=== PATIENT | male | born 1955 | race Caucasian/White ===

== ENCOUNTER 2017-11-22 15:55 | Emergency (ER) | payer MEDICAID, SELFPAY ==
[2017-11-22 15:56] VITALS: BP 122/76; PULSE 71; RESP 16; TEMP 37.4; O2SAT 95; BMI 27.4
--- NOTE | 2017-11-22 16:47 | ED.VISSUMM ---
- ER Visit Summary Date of Service: 11/22/17 Chief Complaint: Hand laceration History of Present Illness: The patient is a 62 M suffered a laceration to the proximal right thumb from a spice grinder. He also has multiple abrasions to the dorsal left hand. He is unsure of his last tetanus update. He is right-hand dominant. He denies any weakness or paresthesias. Physical Examination: Vital signs are unremarkable. Patient's in no acute distress. Right upper extremity examination was a 3 cm laceration to the extensor surface of the right thumb over the metacarpal bone. He has full range of motion without bony tenderness. He has normal strength and sensation and good cap refill. Abrasions are noted to the dorsal left hand. There is no full-thickness laceration. He has full range of motion on the left hand. Test Results: [] Emergency Department Course and Treatment: Tetanus update will be provided. A 3 cm laceration on the right hand was anesthetized with 3 cc 1% lidocaine. Wound was cleansed and irrigated. Skin was closed with 5 simple interrupted sutures of 4-0 nylon. Dressing is applied. Left hand abrasions were cleansed and dressed. Patient will follow up in 1 week for suture removal. Treatment Plan: [] Disposition: Discharge Impression: 1. Right thumb laceration status post suture 2. Left hand abrasions This note was generated with [employer] dictation software. It may contain incorrect words, spelling, and punctuation that were not noted in review of the chart prior to signing ED Disposition - Plan for ED Patient: Chief Complaint: Laceration Referrals: Care Physician,No Primary [Primary Care Provider] -
--- NOTE | 2017-11-22 16:49 | ED.DEP ---
ED Disposition - Plan for ED Patient: Disposition: Home or Assisted Living Chief Complaint: Laceration Instructions: ED Laceration Hand Referrals: Geovany Ahn MD [NON-STAFF] - 7 Days for suture removal
[2017-11-22] MEDS: Diphth,Pertuss(Acell),Tet Vac 0.5 ML Vial IM (16:51)
[2017-11-22 17:22] VITALS: RESP 18
== END 2017-11-22 17:23 | disposition home or self-care (01) ==
PROVIDERS: Emergency Provider Emergency Medicine
DX: S61.011A Laceration without foreign body of right thumb without damage to nail, initial encounter (principal); S60.512A Abrasion of left hand, initial encounter; W31.89XA Contact with other specified machinery, initial encounter; Y93.9 Activity, unspecified; Y92.9 Unspecified place or not applicable; Y99.9 Unspecified external cause status; Z23 Encounter for immunization; I10 Essential (primary) hypertension; Z79.899 Other long term (current) drug therapy
CPT/HCPCS: 12002; 90471; 90715; 99283

== ENCOUNTER 2017-12-05 10:56 | Emergency (ER) | payer MEDICAID, SELFPAY ==
[2017-12-05 10:57] VITALS: BP 145/94; PULSE 88; RESP 15; TEMP 36.5; O2SAT 98; BMI 28.0
--- NOTE | 2017-12-05 11:21 | EKG12_ITS ---
Test Reason : PALPS Blood Pressure : / mmHG Vent. Rate : 095 BPM Atrial Rate : 111 BPM P-R Int : 000 ms QRS Dur : 088 ms QT Int : 358 ms P-R-T Axes : 000 038 064 degrees QTc Int : 449 ms Atrial fibrillation Abnormal ECG Confirmed by EFRAIN JEFF MD ([id number]), food expeditor TOMEKA HESS ([id number]) on 12/07/2017 1:54:47 PM Referred By: JONH/JUANITA Confirmed By:EFRAIN JEFF MD
[2017-12-05 11:43] LABS: Absolute Lymphocyte Count 1.25 X10^3/ul (0.83-4.51); Absolute Neutrophil Count 5.5 X10^3/uL (2.0-7.7); Basophil# 0.02 X10^3/uL; Basophil% 0.3 % (0-1); Eosinophil# 0.11 X10^3/uL; Eosinophils% 1.4 % (0-5); Hematocrit 45.5 % (40-54); Hemoglobin 16.2 g/dl (13.0-16.5); Lymphocyte # 1.25 X10^3/ul (4.0); Lymphocyte % 16.4 % (19-41); Mean Corp Hgb Conc 35.6 g/gl (32-36); Mean Corpuscular Volume 89.9 fL (80-94); Mean Platelet Vol. 8.6 fl (6.2-12.0); Monocyte# 0.67 X10^3/uL; Monocyte% 8.8 % (0-10); Neutrophil # 5.54 X10^3/uL (2.7-7.7); Neutrophil % 72.8 % (47-70); Platelet Count 346 K/mm3 (150-450); RBC Distribution Width CV 13.2 % (11.6-14.6); RBC Distribution Width SD 42.7 fl (35.1-43.9); Red Blood Count 5.06 M/mm3 (4.6-6.2); White Blood Count 7.6 K/mm3 (4.4-11.0)
[2017-12-05 11:46] LABS: POSITIVE COUNT NO; POSITIVE DIFFERENTIAL NO; POSITIVE MORPHOLOGY NO
[2017-12-05] MEDS: Metoprolol Tartrate 5 MG/5 ML Vial IV (11:47)
[2017-12-05 11:50] LABS: Partial Thromboplast Time 23.6 Seconds (24.1-36.2); Prothrombin Time (Protime)PT. 12.9 SECONDS (11.7-14.9)
--- NOTE | 2017-12-05 11:59 | RAD_ITS ---
STUDY: X-RAY CHEST REASON FOR EXAM: Male, 62 years old. Complications. Recent diagnosis of atrial fibrillation. TECHNIQUE: Frontal and lateral views of the chest. COMPARISON: None. FINDINGS: There is low volume inspiration with minimal bibasilar atelectasis. There is no demonstrated pleural abnormality. There is borderline cardiomegaly. Normal mediastinum and jono. Normal visualized pulmonary arteries. Normal visualized aortic arch and descending thoracic aorta. Normal visualized thoracic spine. Normal visualized ribs, clavicles, and shoulders. There is no demonstrated abnormality of the visualized soft tissue structures of the upper abdomen. RAD/Chest PA and Lateral IMPRESSION: No active or acute cardiopulmonary disease. Electronically Signed: Jose Mccabe MD at 12:42 EST , Service support ,
[2017-12-05 12:06] LABS: AST(SGOT) 14 U/L (15-37); Alanine Aminotransfer ALT/SGPT 25 U/L (16-61); Albumin, Serum 3.6 g/dL (3.2-5.0); Alkaline Phosphatase 56 U/L (45-117); Anion Gap 8 (5-15); BUN 15 mg/dL (7-18); BUN/Creat Ratio 16.6 RATIO (10-20); Calcium,Total 9.1 mg/dL (8.5-10.1); Chloride 103 mmol/L (98-107); EST Glomerular Filtration Rate 91 mL/min (>60); Est Glom Filt Rate - Afr Amer 110 mL/min (>60); Estimated Creatinine Clearance 97.41 ml/min; Globulin 3.5 g/dL (2.2-4.2); Glucose 113 mg/dL (74-106); Magnesium 2.5 mg/dL (1.6-2.6); Potassium 3.8 mmol/L (3.5-5.1); Protein, Total 7.1 g/dL (6.4-8.2); Sodium Level 136 mmol/L (136-145); Thyroid Stim Hormone (TSH) 1.52 uIU/mL (0.358-3.74)
[2017-12-05 12:18] VITALS: BP 115/83; PULSE 90; RESP 12; O2SAT 95
[2017-12-05 13:00] VITALS: BP 116/83; PULSE 80; RESP 16; O2SAT 95
--- NOTE | 2017-12-05 13:24 | ED.DCSUM_ITS ---
- ER Visit Summary Date of Service: 12/05/17 Chief Complaint: New onset atrial fibrillation History of Present Illness: The patient is a 62 M who went to get his stitches taken out today of his thumb. They state that they went to take his blood pressure and vital signs and found to be A. fib. Patient denies any chest pain or palpitations. Patient denies any change in exercise tolerance. No shortness of breath. He states that his laceration is healing up fine. A history of hypertension and takes lisinopril and hydrochlorothiazide. He also takes a baby aspirin a day. Patient is a former smoker and drinks 6 pack of beer daily. Physical Examination: Afebrile vital signs are stable heart rate 88 Gen: Well-nourished well-developed Head: Normocephalic atraumatic Eyes: Perrl EOMI ENT: TMs clear no rhinorrhea moist mucous membranes Neck: Supple no lymphadenopathy no JVD nontender CVS: Usually irregular rate rhythm no murmurs normal S1-S2 Respiratory: No distress clear to auscultation bilaterally chest nontender Abdomen: Soft nontender nondistended normal bowel sounds no masses Back: Nontender Extremity: Nontender no edema Skin: Normal color no rash Neuro: alert orientated ?3 CN II-XII intact normal strength sensation reflexes gait cerebellar Psych: Normal affect normal mood Test Results: EKG shows an atrial flutter-like pattern at a rate of 95. His prehospital EKG was reviewed and shows more of an atrial fibrillation pattern. Chest x-ray negative. CBC chemistries liver coags troponin and magnesium within the normal range. Emergency Department Course and Treatment: Received a small dose of IV metoprolol. He also received a dose of p.o. Xarelto and Toprol XL 50 mg. Patient's heart rates been more controlled. I spoke with Dr. Salomon the patient will be discharged home to follow-up in the office. We secured him appointment on December 28 at 1 PM. Patient is comfortable with her plan will return if worsening. Impression: 1. New onset atrial fibrillation This note was generated with [employer] dictation software. It may contain incorrect words, spelling, and punctuation that were not noted in review of the chart prior to signing ED Disposition - Plan for ED Patient: Disposition: Home or Assisted Living Chief Complaint: Palpitations Instructions: ED Afib Prescriptions: Metoprolol(XL)Succ [Toprol Xl (Beta Roberto)] 50 mg PO DAILY #30 tab Rivaroxaban [Xarelto] 20 mg PO DAILY #30 tab Referrals: Care Physician,No Primary [Primary Care Provider] - Additional Instructions: You have an appointment with cardiology (Dr. Salomon) on December 28 at 1 PM
[2017-12-05 13:27] VITALS: BP 109/90; PULSE 98; RESP 18; O2SAT 97
[2017-12-05] MEDS: Rivaroxaban 20 MG Tablet PO (13:54)
[2017-12-05] MEDS: Metoprolol(XL)Succ 50 MG Tablet PO (13:54)
== END 2017-12-05 13:55 | disposition home or self-care (01) ==
PROVIDERS: Emergency Provider Emergency Medicine
DX: I48.91 Unspecified atrial fibrillation (principal); I10 Essential (primary) hypertension; Z79.01 Long term (current) use of anticoagulants; Z79.82 Long term (current) use of aspirin; Z79.899 Other long term (current) drug therapy; Z87.891 Personal history of nicotine dependence
CPT/HCPCS: 71046; 80053; 83735; 84443; 84484; 85025; 85610; 85730; 93005; 96374; 99284; A4216

== ENCOUNTER → 2017-12-28 13:58 | Outpatient (CLI) | payer MEDICAID, SELFPAY ==
[2017-12-28 16:22] LABS: BUN 16 mg/dL (7-18); Creatinine, Serum 0.99 mg/dL (0.70-1.30); Glucose 91 mg/dL (74-106)
[2017-12-28 16:23] LABS: Anion Gap 8 (5-15); BUN/Creat Ratio 16.2 RATIO (10-20); Calcium,Total 9.1 mg/dL (8.5-10.1); Chloride 105 mmol/L (98-107); EST Glomerular Filtration Rate 82 mL/min (>60); Est Glom Filt Rate - Afr Amer 99 mL/min (>60); Potassium 3.9 mmol/L (3.5-5.1); Sodium Level 138 mmol/L (136-145)
== END ==
PROVIDERS: Visit Provider Internal Medicine Cardiovascular Disease
DX: I48.91 Unspecified atrial fibrillation (principal)
CPT/HCPCS: 36415; 80048

== ENCOUNTER → 2018-01-09 10:03 | Outpatient (CLI) | payer MEDICAID, SELFPAY ==
--- NOTE | 2018-01-09 13:06 | PCM.OP.BLANK ---
Operative Report Date of Procedure: 01/09/18 DC cardioversion. 63-year-old man with a history of chronic persistent atrial fibrillation has been on anticoagulation. Patient has preserved left ventricular systolic function by echocardiogram. The patient was brought into the noninvasive lab in the postabsorptive nonsedated state. Patient was seen by Dr. David of the critical care division. Informed consent was obtained. AP pads were applied. The patient was administered a total of 190 mg of intravenous propofol. DC cardioversion was applied with 200 J initially followed by 200 J, 300 J, and 360 J of biphasic energy. There was only transient resumption of sinus rhythm noted. After 4 attempts it was decided to abort the procedure. Patient tolerated the procedure well. Unsuccessful DC cardioversion from atrial fibrillation. Patient will be treated with oral amiodarone 200 mg a day for 2 weeks and brought back for an attempt at repeat cardioversion. The above has been discussed with the patient and his family. Alcohol cessation have also been emphasized.
--- NOTE | 2018-01-09 14:48 | PCM.OP.BLANK ---
Problem List (1) New onset atrial fibrillation Status: Acute (2) Alcohol abuse Status: Chronic (3) Hypertension Status: Chronic Qualifiers: Hypertension type: essential hypertension Qualified Code(s): I10 - Essential (primary) hypertension Operative Report Date of Procedure: 01/09/18 - Conscious sedation CONSCIOUS SEDATION REPORT BRIEF HISTORY OF PRESENT ILLNESS: The patient is a 63-year-old male with a history of paroxysmal atrial fibrillation that presented to [facility] on 01/09/2018 secondary to an elective cardioversion. The patient reports he has had an appendectomy and colonoscopy in the past without complication. Patient reports his last p.o. intake was last evening. Patient does admit to a brief smoking history in the past. Patient does also report drinking 3-6 beers per day. Patient states he does snore, but is never been diagnosed with MAXX. Patient is active on a daily basis and enjoys chopping wood and working around the home. Patient is anticoagulated with Xarelto therapy. Last known ejection fraction was 60%. PHYSICAL EXAMINATION: VITAL SIGNS: Reviewed and were acceptable. GENERAL: The patient is a morbidly obese male, in no apparent distress, speaking in full sentences. Edentulous HEENT: Normocephalic, atraumatic. Mucous membranes are moist and pink. Good mouth opening noted. Trachea is midline. Good neck mobility. Mallampati 4 CHEST: S1, S2 irregularly irregular. No systolic murmur is present LUNGS: Clear to auscultation bilaterally without appreciable wheezes, rales or rhonchi. ABDOMEN: Soft, nontender, nondistended. Positive bowel sounds. EXTREMITIES: There is no clubbing, cyanosis or edema. ASA Class: II DESCRIPTION OF PROCEDURE: After confirmation of informed consent, the patient's anesthesia plan was reviewed in detail. Propofol was chosen. Risks and benefits were reviewed and the patient agreed to proceed. At 11:50 AM the patient was given 40 mg of propofol. The patient required 120 mg of propofol to be sedated enough to receive the first cardioversion. In total, the patient received 200 mg of propofol to facilitate 4 separate synchronized cardioversions of 200, 200, 300 and 300 j respectively. None of these were successful in achieving prolonged sinus rhythm. The patient was monitored until 12:12 PM, at which time he was answering appropriately. No hypotension was noted and saturations were maintained with nasal cannula oxygen. COMPLICATIONS: None ESTIMATED BLOOD LOSS: None RECOMMENDATIONS: Okay to recover in usual fashion. Code Visit 9xxxx: Other Procedure See Report - 85266 -22 minutes of conscious sedation time
--- NOTE | 2018-01-09 15:07 | OP.PCM_ITS ---
Problem List (1) New onset atrial fibrillation Status: Acute (2) Alcohol abuse Status: Chronic (3) Hypertension Status: Chronic Qualifiers: Hypertension type: essential hypertension Qualified Code(s): I10 - Essential (primary) hypertension Operative Report Date of Procedure: 01/09/18 - Conscious sedation CONSCIOUS SEDATION REPORT BRIEF HISTORY OF PRESENT ILLNESS: The patient is a 63-year-old male with a history of paroxysmal atrial fibrillation that presented to [facility] on 01/09/2018 secondary to an elective cardioversion. The patient reports he has had an appendectomy and colonoscopy in the past without complication. Patient reports his last p.o. intake was last evening. Patient does admit to a brief smoking history in the past. Patient does also report drinking 3-6 beers per day. Patient states he does snore, but is never been diagnosed with MAXX. Patient is active on a daily basis and enjoys chopping wood and working around the home. Patient is anticoagulated with Xarelto therapy. Last known ejection fraction was 60%. PHYSICAL EXAMINATION: VITAL SIGNS: Reviewed and were acceptable. GENERAL: The patient is a morbidly obese male, in no apparent distress , speaking in full sentences. Edentulous HEENT: Normocephalic, atraumatic. Mucous membranes are moist and pink. Good mouth opening noted. Trachea is midline. Good neck mobility. Mallampati 4 CHEST: S1, S2 irregularly irregular. No systolic murmur is present LUNGS: Clear to auscultation bilaterally without appreciable wheezes, rales or rhonchi. ABDOMEN: Soft, nontender, nondistended. Positive bowel sounds. EXTREMITIES: There is no clubbing, cyanosis or edema. ASA Class: II DESCRIPTION OF PROCEDURE: After confirmation of informed consent, the patient's anesthesia plan was reviewed in detail. Propofol was chosen. Risks and benefits were reviewed and the patient agreed to proceed. At 11:50 AM the patient was given 40 mg of propofol. The patient required 120 mg of propofol to be sedated enough to receive the first cardioversion. In total, the patient received 200 mg of propofol to facilitate 4 separate synchronized cardioversions of 200, 200, 300 and 300 j respectively. None of these were successful in achieving prolonged sinus rhythm. The patient was monitored until 12:12 PM, at which time he was answering appropriately. No hypotension was noted and saturations were maintained with nasal cannula oxygen. COMPLICATIONS: None ESTIMATED BLOOD LOSS: None RECOMMENDATIONS: Okay to recover in usual fashion. Code Visit 9xxxx: Other Procedure See Report - [id number] -22 minutes of conscious sedation time
== END ==
PROVIDERS: Visit Provider Internal Medicine Cardiovascular Disease
DX: I48.1 Persistent atrial fibrillation (principal); I48.0 Paroxysmal atrial fibrillation; I10 Essential (primary) hypertension; E66.01 Morbid (severe) obesity due to excess calories; Z79.82 Long term (current) use of aspirin; Z79.01 Long term (current) use of anticoagulants; Z79.899 Other long term (current) drug therapy; Z87.891 Personal history of nicotine dependence
CPT/HCPCS: 92960; 93005; 93306; J7040

== ENCOUNTER 2018-01-30 10:53 | Day surgery (SDC) | payer MEDICAID, SELFPAY ==
[2018-01-27 11:48] VITALS: BMI 28.0
--- NOTE | 2018-01-30 12:37 | PCM.OP.BLANK ---
Operative Report Date of Procedure: 01/30/18 DC cardioversion. 63-year-old man with a history of atrial fibrillation chronic persistent on anticoagulation. The patient was seen by Dr. Cm of the critical care division and after informed consent was obtained the patient was brought to the non-invasive lab in the postabsorptive state. Anterior posterior pads were applied. The patient was then administered 90 mg of intravenous propofol. The patient underwent DC cardioversion with 200 J and subsequently 300 J of biphasic energy with reversal to sinus rhythm. Patient tolerated the procedure well. The plan will be for the patient to continue his current medical therapy and follow-up in my office as an outpatient. Conclusion: Successful DC cardioversion to sinus rhythm.
--- NOTE | 2018-01-30 12:41 | PCM.HP.CAR ---
History of Present Illness Date of Admission: 01/30/18 Chief Complaint: Preop evaluation for DC cardioversion The patient is a 63 year old M with a history of hypertension alcohol abuse who was evaluated in the office in December of this year and was noted to have atrial fibrillation which was asymptomatic and probably of recent onset. He had been evaluated with an echocardiogram which had demonstrated preserved ejection fraction and was placed on anticoagulation. He has been seen for evaluation and consideration of DC cardioversion. He denies any chest pain or shortness breath or paroxysmal nocturnal dyspnea pedal edema no neck arm or jaw discomfort suggest angina. [] Past Medical History Allergies/Adverse Reactions: Allergies No Known Allergies Allergy (Verified 11/22/17 15:59) Home Medications: Ambulatory Orders Medication Instructions Recorded Lisinopril/Hydrochlorothiazide 1 tab PO DAILY 11/22/17 [Zestoretic 10/.5 Tablet] Aspirin [Aspirin, Baby] 81 mg PO DAILY@0800 12/05/17 Multivitamins,Therapeutic 1 tab PO DAILY 12/05/17 [Multivitamin] metoprolol succinate ER 50 mg 50 mg PO DAILY #30 tab 12/28/17 tablet,extended release 24 hr rivaroxaban 20 mg tablet 20 mg PO DAILY #30 tab 12/28/17 Past Medical History (Chronic Problems): Chronic Problems (Last Reviewed 12/28/17 @ 13:37 by Celestino Salomon MD) Alcohol abuse (Chronic) Hypertension (Chronic) Surgical History: no surgical history - *Family History Maternal Family History: Family History (Last Reviewed 12/28/17 @ 13:37 by Celestino Salomon MD) Brother Cancer History Items: Hypertension Smoking Status: Former smoker Alcohol: Heavy Drugs: None Review of Systems - Review of Systems General: Denies: Fever, Night Sweats, Fatigue Cardiovascular: Denies: Chest Discomfort, Shortness of Breath, Orthopnea, PND, Peripheral Edema, Palpitations, Lightheadedness, Dizziness, Near Syncope, Syncope Respiratory: Denies: Cough, Sputum Production, Hemoptysis Gastrointestinal: Denies: Hematemesis, Hematochezia, Melena Genitourinary: Denies: Dysuria, Hematuria Skin: Denies: Rash Subjectve: Pleasant gentleman in no apparent distress Objective: Weight: 213 lb Body Mass Index (BMI) 28.0 General: Awake, Alert, Oriented x 3 HEENT: PERRL, EOMI, Sclera Non Icteric Neck: Supple, Good ROM, No Lymph Node Enlargement Lungs: Clear to auscultation Cardiovascular: Irregular Rhythm, Normal S1, Normal S2, No Murmurs, No Rubs, No Gallops VTE Information - Inpt Only VTE Present on Admission: No VTE Mechan Device Prophylaxis: None VTE Pharm Prophylaxis ordered?: No Reason prophylaxis not ordered:: Treatment Not Indicated Rhythm: EKG: Atrial fibrillation with a controlled ventricular response rate ECHO: Normal ejection fraction of 60% Assessment/Plan 1. Atrial fibrillation Patient appears to have chronic persistent atrial fibrillation. The recommendation at this time would be for him to undergo DC cardioversion. He has been on anticoagulation as well as rate limiting medications. The risk benefits and alternatives have been explained to him he understands and agrees to proceed. 2. Hypertension. Patient's blood pressure appears to be under good control at this time. Thank you for allowing me to participate in the care of your patient. Please don't hesitate to call if any issues arise
--- NOTE | 2018-01-30 13:08 | OP.PCM_ITS ---
Operative Report Date of Procedure: 01/30/18 CONSCIOUS SEDATION REPORT DATE OF SERVICE: January 30, 2018 BRIEF HISTORY OF PRESENT ILLNESS: The patient is a 63-year-old male who presented to [facility] for an elective outpatient cardioversion due to underlying atrial fibrillation. The patient is currently anticoagulated on Xarelto. His last surface echocardiogram revealed ejection fraction of approximately 60%. The patient did undergo a previous cardioversion on January 09, during which time, the patient required excessive amounts of propofol to achieve an appropriate level of sedation. The patient does have a tobacco and alcohol abuse history. He reports no prior anesthetic complications. PHYSICAL EXAMINATION: VITAL SIGNS: Reviewed and were acceptable. GENERAL: The patient is a male, in no apparent distress, speaking in full sentences. HEENT: Normocephalic, atraumatic. Mucous membranes are moist and pink. Good mouth opening noted. Trachea is midline. Good neck mobility. CHEST: S1, S2 irregularly irregular. No murmurs, rubs or gallops were noted. LUNGS: Clear to auscultation bilaterally without appreciable wheezes, rales or rhonchi. ABDOMEN: Soft, nontender, nondistended. Positive bowel sounds. EXTREMITIES: There is no clubbing, cyanosis or edema. ASA Class: II DESCRIPTION OF PROCEDURE: After confirmation of informed consent, the patient's anesthesia plan was reviewed in detail. Propofol was chosen. Risks and benefits were reviewed and the patient agreed to proceed. At 1221, the patient was given his first bolus of propofol. In total, the patient required 90 mg of propofol throughout the entire procedure to achieve an appropriate level of sedation in order to facilitate 2 separate cardioversion attempts, one at 200 J and one at 300 J. Following the second cardioversion attempt by Dr. Salomon, the patient was noted to be in normal sinus rhythm. The patient was monitored until 1229, at which time they reached their baseline mental status and function. The patient tolerated the procedure well. COMPLICATIONS: None ESTIMATED BLOOD LOSS: None RECOMMENDATIONS: Okay to recover in usual fashion. Code Visit 9xxxx: Other Procedure See Report
== END 2018-01-30 23:59 | disposition home or self-care (01) ==
LOC: CLSP 10:55
PROVIDERS: Visit Provider Internal Medicine Cardiovascular Disease
DX: I48.2 Chronic atrial fibrillation (principal); I48.1 Persistent atrial fibrillation; I10 Essential (primary) hypertension; F10.10 Alcohol abuse, uncomplicated; Y90.9 Presence of alcohol in blood, level not specified; Z87.891 Personal history of nicotine dependence; Z79.01 Long term (current) use of anticoagulants; Z79.899 Other long term (current) drug therapy
CPT/HCPCS: 92960; 93005; J7030

== ENCOUNTER → 2019-04-18 06:57 | Outpatient (CLI) | payer MEDICAID, SELFPAY ==
[2019-02-16 08:16] VITALS: BMI 29.0
--- NOTE | 2019-04-18 10:24 | NEURO ---
NCS and/or EMG Patient Report Ordering Doctor: Supa Colindres DATE OF SERVICE: 04/18/19 This is a bilateral upper extremity nerve conduction study and a left upper extremity EMG performed on this 64-year-old male with tingling numbness and pain which awakens him from sleep bilaterally worse on the left. He is right-handed. Symptoms have been present for 5 years. Bilateral upper extremity sensory and motor nerve conduction studies were performed demonstrate severe prolongation of the median motor and sensory distal latencies bilaterally more so on the left side which also demonstrates decreased amplitude. Both sides demonstrate decreased conduction velocity. The ulnar motor and sensory and radial sensory responses are normal. The median F waves bilaterally are severely prolonged. Left upper extremity needle electromyography was performed. Muscles evaluate included The first dorsal osseous, abductor pollicis brevis, brachioradialis, biceps, triceps and deltoid muscles. The abductor pollicis brevis muscle did demonstrate increased insertional activity with 1+ fibrillation potentials and mild increased motor unit amplitude and early recruitment pattern. All other muscles demonstrated normal insertional activity with absence of pathologic spontaneous activity. Normal motor unit recruitment pattern amplitude was noted otherwise. Impression: Abnormal electrophysiologic study of the bilateral upper extremities consistent with severe carpal tunnel syndrome bilaterally, electrically worse on the left side.
== END ==
PROVIDERS: Referring Provider Orthopaedic Surgery; Visit Provider Orthopaedic Surgery
DX: G56.03 Carpal tunnel syndrome, bilateral upper limbs (principal); G56.23 Lesion of ulnar nerve, bilateral upper limbs
CPT/HCPCS: 95886; 95911

== ENCOUNTER 2019-04-23 16:45 | Emergency (ER) | payer MEDICAID, SELFPAY ==
[2019-02-16 08:16] VITALS: BMI 29.0
[2019-04-23 16:46] VITALS: BP 109/80; PULSE 58; RESP 12; TEMP 36.2; O2SAT 96; BMI 28.4
--- NOTE | 2019-04-23 16:56 | CT_ITS ---
STUDY: CT ABDOMEN AND PELVIS WITH CONTRAST REASON FOR EXAM: Male, 64 years old. Diarrhea for 3 days. RADIATION DOSAGE (If Supplied By Facility): CTDIvol = ( 18.33 ) mGy, DLP = ( 1333.99 ) mGycm TECHNIQUE: Transaxial images were obtained from the dome of the diaphragm to the symphysis pubis with oral contrast. 100 IV/Oral Isovue 300 was administered. Sagittal and coronal images were reconstructed. Individualized dose optimization techniques were used for this CT. COMPARISON: None. FINDINGS: The visualized lung bases are unremarkable. The visualized portions of the heart are within normal limits. Normal liver. Normal gallbladder and extrahepatic biliary system. Normal spleen. Normal pancreas. Normal bilateral adrenal glands. Normal right kidney. Normal right ureter. There is an exophytic 3.6 cm cyst off the upper pole of an otherwise normal left kidney. Normal left ureter. Type I hiatal hernia. The stomach is otherwise unremarkable. The proximal small bowel appears grossly normal. There is mildly dilated small bowel loops in the left lower quadrant with associated wall thickening suggesting ileitis. This can be followed to the cecum. The colon contains fluid but is nondistended. There is mild descending and sigmoid diverticulosis without acute inflammatory change. The appendix is visualized and appears normal. Normal abdominal aorta. Normal inferior vena cava. Normal retroperitoneum. Normal urinary bladder. The prostate is enlarged with central calcifications. No pelvic lymphadenopathy. There is minimal free fluid in the posterior cul-de-sac. No free air is seen within the peritoneal cavity. Normal abdominal wall. There are diffuse degenerative changes of the visualized lumbar spine. There is mild anterolisthesis of L5 on S1 with pars defects. CT/Abdomen/Pelvis WITH Contrast IMPRESSION: 1. Findings suggestive of ileitis. 2. Left renal cyst. 3. Enlarged prostate. 4. Diverticulosis without acute inflammatory change. 5. Hiatal hernia. 6. Minimal free fluid in the posterior cul-de-sac thought to be secondary to inflammatory processes small bowel. 7. Degenerative changes of the lumbar spine. Electronically Signed: Lorenzo Urias DO at 19:10 EDT Tel [phone], Service support ,
--- NOTE | 2019-04-23 16:59 | ED.VIS.GEN ---
History of Present Illness Chief Complaint: Abd Pain Detail of Chief Complaint: Diarrhea and abdominal pain Informant: Patient Onset: - - 3 days Timing: Waxes and wanes Current Severity: Mild Maximum Severity: Moderate Narrative: Patient presents with a 3-day history of abdominal pain and diarrhea. He states he is having approximate 3 loose bowel movements a day. No blood associated. Is been having intermittent sharp pain around the umbilicus. He does report prior colonoscopy that was unremarkable. He denies history of IBS, Crohn's disease, ulcerative colitis. He denies fever or chills. He has had poor appetite. There is been no vomiting. He thinks his girlfriend may be coming down with the same symptoms. - Past Medical History (1) Alcohol abuse Status: Chronic (2) Chronic atrial fibrillation Status: Chronic (3) Essential (primary) hypertension Status: Chronic Past Medical History - Allergies and Home Meds Allergies/Adverse Reactions: Allergies No Known Allergies Allergy (Verified 04/23/19 16:46) Doctors: Dr. Salomon, primary care through [facility]. Prior records reviewed: Yes Past Medical History: - - Reviewed Surgical History: no surgical history Lives: Spouse/ Significant Other Smoking Status: Former smoker Alcohol: Occasional - Family History Maternal Family History: Family History (Last Reviewed 02/16/19 @ 09:03 by Celestino Salomon MD) Brother Cancer Family History: Reports: Hypertension Review of Systems General: Reports: Chills. Denies: Fever Cardiovascular: Denies: Chest pain Respiratory: Denies: Dyspnea, Cough Gastrointestinal: Reports: Abdominal pain, Diarrhea. Denies: Nausea, Vomiting Genitourinary: Denies: Dysuria Skin: Denies: Rash Physical Exam Vital Signs/Narrative: Vital Signs Temp Pulse Resp BP Pulse Ox 04/23/19 16:46 97.2 F L 58 L 12 109/80 96 Diagnostic/Tx/Re-eval Impressions Abdomen/Pelvis CT 04/23/19 16:56 IMPRESSION: 1. Findings suggestive of ileitis. 2. Left renal cyst. 3. Enlarged prostate. 4. Diverticulosis without acute inflammatory change. 5. Hiatal hernia. 6. Minimal free fluid in the posterior cul-de-sac thought to be secondary to inflammatory processes small bowel. 7. Degenerative changes of the lumbar spine. Electronically Signed: Lorenzo Urias DO at 19:10 EDT Tel [phone], Service support , 04/23/19 16:56 Abdomen/Pelvis WITH Contrast [CT] Stat Laboratory Results 04/23/19 04/23/19 04/23/19 17:00 17:00 18:10 WBC 8.0 RBC 5.68 Hgb 17.5 H Hct 50.1 MCV 88.2 MCH 30.8 MCHC 34.9 RDW 13.1 RDW Differential 42.7 Plt Count 302 MPV 8.9 Immature Gran % (Auto) 0.400 Neut % (Auto) 78.7 H Lymph % (Auto) 10.6 L [place] % (Auto) 9.8 Eos % (Auto) 0.4 Baso % (Auto) 0.1 Absolute Neuts (auto) 6.3 Absolute Lymphs (auto) 0.84 Total Counted Not Reportable Sodium 137 Potassium 3.8 Chloride 101 Carbon Dioxide 26.0 Anion Gap 10 BUN 18 Creatinine 1.29 Estim Creat Clear Calc 66.24 Est GFR (MDRD) Af Amer 72 Est GFR (MDRD) Non-Af 60 BUN/Creatinine Ratio 14.0 Glucose 126 H Calcium 9.0 Total Bilirubin 0.60 Direct Bilirubin 0.14 AST 26 ALT 54 Alkaline Phosphatase 49 Total Protein 7.7 Albumin 3.4 Globulin 4.3 H Lipase 103 Urine Color Yellow Urine Clarity Clear Urine pH 5.0 Ur Specific [place] 1.020 Urine Protein 15 H Urine Glucose (UA) Normal Urine Ketones Negative Urine Occult Blood 10 H Urine Nitrite Negative Urine Bilirubin Negative Urine Urobilinogen Normal Ur Leukocyte Esterase Negative Urine RBC 0-5 SEEN Urine WBC 0-5 SEEN Ur Squamous Epith Cells 0-5 SEEN Urine Bacteria RARE Urine Mucus 0 SEEN - Medical Decision Making Patient was given morphine, Zofran, and IV fluids. Repeat evaluation is resting comfortably. Test results discussed with him. CT scan does show sign of ileitis. I advised him that this could be bacterial in nature. He will be treated with a course of Augmentin, first dose given here. He is to return for worsening symptoms. He will follow-up with his primary care physician at [facility]. ED Disposition - Plan for ED Patient: Disposition: Home or Assisted Living Diagnosis: Ileitis Instructions: Bacterial Gastroenteritis Prescriptions: Amox/Clavulanate Tablet [Augmentin Tablet] 875 mg PO Q12H #20 tab Prescription Printed Dicyclomine HCl [Bentyl] 20 mg PO TIDAC #20 cap Prescription Printed Additional Instructions: Follow-up with your doctor at [facility].
[2019-04-23] MEDS: 0.9% Normal Saline 1,000 ML 150 ML IV (17:02)
[2019-04-23] MEDS: Ondansetron 4 MG/2 ML Vial IV (17:02)
[2019-04-23] MEDS: Morphine 4 MG/ML Syringe IV (17:03)
[2019-04-23 17:19] LABS: Absolute Lymphocyte Count 0.84 X10^3/ul (0.83-4.51); Absolute Neutrophil Count 6.3 X10^3/uL (2.0-7.7); Basophil# 0.01 X10^3/uL; Basophil% 0.1 % (0-1); Eosinophil# 0.03 X10^3/uL; Eosinophils% 0.4 % (0-5); Hematocrit 50.1 % (40-54); Hemoglobin 17.5 g/dl (13.0-16.5); Lymphocyte # 0.84 X10^3/ul (4.0); Lymphocyte % 10.6 % (19-41); Mean Corp Hgb Conc 34.9 g/gl (32-36); Mean Corpuscular Hgb 30.8 pg (27.0-32.0); Mean Corpuscular Volume 88.2 fL (80-94); Mean Platelet Vol. 8.9 fl (6.2-12.0); Monocyte# 0.78 X10^3/uL; Monocyte% 9.8 % (0-10); Neutrophil # 6.26 X10^3/uL (2.7-7.7); Neutrophil % 78.7 % (47-70); Platelet Count 302 K/mm3 (150-450); RBC Distribution Width CV 13.1 % (11.6-14.6); RBC Distribution Width SD 42.7 fl (35.1-43.9); Red Blood Count 5.68 M/mm3 (4.6-6.2)
[2019-04-23 17:32] LABS: POSITIVE COUNT NO; POSITIVE DIFFERENTIAL NO; POSITIVE MORPHOLOGY NO
--- NOTE | 2019-04-23 17:37 | ED.RN ---
ATTEMPT MADE TO COLLECT URINE. PT WAS UNABLE TO PROVIDE A SAMPLE. SPECIMEN AND URINAL AT BEDSIDE. PT IS AWARE OF NEED. Elisabeth MOREL RN [id number]
[2019-04-23 17:42] LABS: AST(SGOT) 26 U/L (15-37); Alanine Aminotransfer ALT/SGPT 54 U/L (16-61); Albumin, Serum 3.4 g/dL (3.2-5.0); Alkaline Phosphatase 49 U/L (45-117); Anion Gap 10 (5-15); BUN 18 mg/dL (7-18); Bilirubin, Direct 0.14 mg/dL (0.00-0.30); Chloride 101 mmol/L (98-107); Creatinine, Serum 1.29 mg/dL (0.70-1.30); EST Glomerular Filtration Rate 60 mL/min (>60); Est Glom Filt Rate - Afr Amer 72 mL/min (>60); Estimated Creatinine Clearance 66.24 ml/min; Globulin 4.3 g/dL (2.2-4.2); Glucose 126 mg/dL (74-106); Lipase 103 U/L (73-393); Potassium 3.8 mmol/L (3.5-5.1); Protein, Total 7.7 g/dL (6.4-8.2); Sodium Level 137 mmol/L (136-145)
[2019-04-23 18:20] LABS: Mucous, Urine 0 SEEN /hpf (<or=2+)
[2019-04-23 18:39] LABS: Color, Urine Yellow (Yellow); Glucose, Dipstick Normal (Normal); Ketone-Dipstick Negative (Negative); Leukocyte Esterase-Dipstick Negative /ul (Negative); Nitrite-Dipstick Negative (Negative); Occult Blood-Urine 10 /ul (Negative); Protein-Dipstick 15 mg/dl (Negative); Urine Bilirubin Dipstick Negative (Negative); Urine Clarity Clear (Clear); Urine Urobilinogen Normal (Normal)
[2019-04-23 18:50] LABS: White Blood Cells 0-5 SEEN /hpf (0-5)
[2019-04-23 18:51] LABS: Bacteria RARE /hpf (None Seen); Red Blood Cells-Urine 0-5 SEEN /hpf (0-5); Squamous Epithelial Cells - UA 0-5 SEEN /hpf (0-5)
[2019-04-23] MEDS: Amox/Clavulanate 875 MG Tablet PO (20:41)
[2019-04-23 20:43] VITALS: BP 126/89; PULSE 84; RESP 16; O2SAT 96
== END 2019-04-23 20:44 | disposition home or self-care (01) ==
PROVIDERS: Emergency Provider Emergency Medicine
DX: K52.9 Noninfective gastroenteritis and colitis, unspecified (principal); I48.2 Chronic atrial fibrillation; I10 Essential (primary) hypertension; Z79.01 Long term (current) use of anticoagulants; Z79.82 Long term (current) use of aspirin; Z79.899 Other long term (current) drug therapy; Z87.891 Personal history of nicotine dependence
CPT/HCPCS: 74177; 80048; 80076; 81001; 83690; 85025; 87506; 96361; 96374; 96375; 99284; J7030; Q9967; A4216; J2405

== ENCOUNTER 2019-09-21 13:35 | Emergency (ER) | payer MEDICAID, SELFPAY ==
[2019-09-21 13:36] VITALS: BP 144/81; PULSE 83; RESP 18; TEMP 36.6; O2SAT 98; BMI 29.0
--- NOTE | 2019-09-21 14:25 | RAD_ITS ---
STUDY: X-RAY - LEFT HAND REASON FOR EXAM: Male, 64 years old. Laceration. TECHNIQUE: 3 view(s) of the hand. COMPARISON: None. FINDINGS: Old avulsion fracture of the ulnar styloid. Normal radiocarpal articulation. Normal distal radioulnar joint. Normal visualized carpal bones. Normal carpal articulations Normal carpometacarpal articulation of the thumb. Normal second through fifth carpometacarpal joints. Normal metacarpi. Normal metacarpophalangeal joint of the thumb. Normal interphalangeal joint of the thumb. Normal proximal and distal phalanges of the thumb. Normal metacarpophalangeal joints of the second through fifth fingers. Normal proximal and distal interphalangeal joints of the second through fifth fingers. Normal phalanges of the second through fifth fingers. Dorsal soft tissue injury. RAD/Hand Min 3 Views IMPRESSION: Dorsal soft tissue injury. Electronically Signed: Car Perez, at 14:36 EST , Service support ,
[2019-09-21] MEDS: Diphth,Pertuss(Acell),Tet Vac 0.5 ML Vial IM (14:29)
--- NOTE | 2019-09-21 14:38 | ED.VISSUMM ---
- ER Visit Summary Date of Service: 09/21/19 Chief Complaint: Laceration History of Present Illness: The patient is a 64 M with no primary care physician. He reports that today he dropped a cutting blade onto his left hand suffering a laceration. He states initially had an aching pain that was 3 out of 10 in severity. He denies any pain now. However, he reports that he is unable to extend his middle finger. Is right-hand dominant. Is unsure when his last tetanus shot was. Physical Examination: Vitals: Stable. Afebrile. General: Well-nourished and well-developed. Head: Normocephalic atraumatic. Neck: Supple, no lymphadenopathy. No JVD. Nontender. Cardiovascular: Regular rate and rhythm. No murmurs. Respiratory: No respiratory distress. Clear to auscultation bilaterally. Abdominal: Soft, nontender, nondistended, normal bowel sounds. No guarding, rebound, or peritoneal signs. Back: Nontender. Extremities: 4 cm laceration on the back of his left hand over the distal portion of his second and third metacarpals. There is laceration of the extensor tendon over this area that is complete. He is unable to extend his finger to gravity. He is neurovascular intact distal to this. Skin: Normal color, no rash. Neurologic: Alert and oriented ?3. Cranial nerves II through XII are intact. Normal strength and sensation. Psych: Normal affect. Test Results: Clinical Impression(s) from Imaging Studies Hand X-Ray 09/21/19 14:25 IMPRESSION: Dorsal soft tissue injury. Electronically Signed: Car Chris, at 14:36 EST , Service support , Emergency Department Course and Treatment: Patient had his wound anesthetized and repaired. He tolerated this well. Treatment Plan: Patient was discussed with Dr. Remy. He will be discharged with instructions to follow-up in the office on Tuesday with plan to go to the OR for a tendon repair on Tuesday. He is happy with this plan. Return to the emergency department for any worsening symptoms. Disposition: To home in improved and stable condition. Impression: 1. Laceration left hand, 4 cm, repaired. 2. Left third finger extensor tendon laceration. Procedure note: Wound was cleansed with chlorhexidine soap. Anesthetized with 1% lidocaine without epinephrine. Copiously irrigated with normal saline. Wound was explored there is no foreign material present. The wound was explored. The distal portion of the extensor tendon is visualized and there is a complete laceration. I am unable to visualize the proximal end of the extensor tendon. It was closed with 6 simple interrupted 4-0 ethilon sutures. The patient tolerated it well. This note was generated with [employer] dictation software. It may contain incorrect words, spelling, and punctuation that were not noted in review of the chart prior to signing ED Disposition - Plan for ED Patient: Disposition: Home or Assisted Living Instructions: LACERATION, Tendon Referrals: Naomie Remy DO [STAFF PHYSICIAN] - 09/25/19
[2019-09-21 16:30] VITALS: RESP 16
== END 2019-09-21 16:30 | disposition home or self-care (01) ==
LOC: ED 14:41
PROVIDERS: Emergency Provider Emergency Medicine
DX: S66.323A Laceration of extensor muscle, fascia and tendon of left middle finger at wrist and hand level, initial encounter (principal); S61.412A Laceration without foreign body of left hand, initial encounter; W45.8XXA Other foreign body or object entering through skin, initial encounter; Y93.9 Activity, unspecified; Y92.9 Unspecified place or not applicable; Y99.9 Unspecified external cause status; Z23 Encounter for immunization; I48.91 Unspecified atrial fibrillation; I10 Essential (primary) hypertension; Z79.01 Long term (current) use of anticoagulants; Z79.82 Long term (current) use of aspirin; Z79.899 Other long term (current) drug therapy
CPT/HCPCS: 12002; 73130; 90715; 99283

== ENCOUNTER 2019-09-26 13:01 | Day surgery (SDC) | payer MEDICAID, SELFPAY ==
[2019-09-25 08:16] VITALS: BMI 29.0
--- NOTE | 2019-09-25 08:44 | HP_ITS ---
I have re-examined the patient. There are no clinical changes since date of exam. Intake Intake Visit Reasons: left hand Chief Complaint: Initial visit. Allergies No Known Allergies Allergy (Verified 09/21/19 13:38) Medications Aspirin [Aspirin, Baby] 81 mg PO DAILY@0800 12/05/17 [History Confirmed 09/25/19] Multivitamins,Therapeutic [Multivitamin] 1 tab PO DAILY 12/05/17 [History Confirmed 09/25/19] lisinopril 10 mg-hydrochlorothiazide 12.5 mg tablet 1 tab PO DAILY #90 tab 01/04/19 [Rx Confirmed 09/25/19] metoprolol succinate 50 mg tablet,extended release 24 hr 50 mg PO DAILY #90 tab 01/04/19 [Rx Confirmed 09/25/19] rivaroxaban 20 mg tablet 20 mg PO DAILY #30 tab 01/04/19 [Rx Confirmed 09/25/19] cephalexin 500 mg capsule 500 mg PO BID 10 Days #20 cap 09/25/19 [Rx Confirmed 09/25/19] PFSH Social History (Updated 09/25/19 @ 08:44 by Naomie Remy DO) Smoking Status: Former smoker alcohol intake: current alcohol intake frequency: 3 or more drinks per day Alcohol type: beer HPI left hand: Surgical H&P: Yes Details: Parts of this documentation were recorded by a scribe, this documentation accurately reflects the service provided and the decisions made by me, Naomie Remy DO 09/25/19 0812. ELLIS BROWNLEE is a 64 year old M NEW patient here today for left hand injury. DOI: 09/21/19 Patient states his cutting wheel blew apart on him and the blade landed on his hand. Patient states he was cutting steel at the time. Denies numbness, tingling or other associated symptoms. Patient states he has a cut from about his 2nd to 4th web space of his fingers. Patient was seen in the ER on 09/21/19. He was not placed on ATBs. Patient is unable to extend his finger. Patient had carpal tunnel release preformed not too long ago and he states he has had a previous cut of his thumb on the left hand as well. patient did receive tetanus tho. ROS Musc Reports joint pain, Reports joint swelling, Denies numbness, Reports radiating pain into limb, Reports stiffness, Denies tingling Skin/Breast Denies redness, Denies lesions, Denies itching, Denies rash, Denies skin swelling Neuro No numbness, No tingling Ortho Exam Right Wrist/Hand Skin/Wound: Yes Swelling Left Wrist/Hand Date of injury: 09/21/19 Skin/Wound: Yes healing, Yes Swelling WRIST: lacks full extension of the middle finger No rales rhonchi wheezing, no abdominal pain, no audible bruits Assessment & Plan Problems 1. Extensor tendon laceration of finger with open wound, initial encounter S56.429A; S6A Plan Personally reviewed the patient's medical history, medications, surgeries and recent exams if available. He has lacerations and weakness in extension, explained that he will need a wash out and extension tendon repair. He was not given any antibiotics and will need those as well. Reviewed the post op restrictions. Reviewed the pre-operative plans with the patient. Risks and benefits of the procedure were fully explained, including but not limited to infection, neurovascular injury, continued pain, arthritis, stiffness, need for further surgery, re-injury, DVT, PE, general risks of anesthesia, and loss of limb or life. The patient understands all the risks and does wish to proceed with written consent. Follow up post op or sooner if pain, swelling, numbness or associated symptoms, or concerns develop. All questions answered. Patient in agreement of plan. Medications New: cephalexin (Keflex) take 1 tab every 12 hours 500 mg PO BID 10 days 20 caps 0RF Coding Level of Care Code Off vis,new,level 3 Diagnoses Extensor tendon laceration of finger with open wound, initial encounter S56.429A; S6.A ??Encounter type: initial encounter 09/25/19 1641 <Electronically signed by Naomie curtis DO> Date _ Naomie Remy DO
[2019-09-26] VITALS (7 sets, daily range): BP systolic 116–145; BP diastolic 70–98; PULSE 82–117; RESP 16–18; TEMP 36.1–37.2; O2SAT 92–97; BMI 28.5
--- NOTE | 2019-09-26 13:13 | EKG12_ITS ---
Test Reason : PREOP Blood Pressure : / mmHG Vent. Rate : 078 BPM Atrial Rate : 072 BPM P-R Int : 000 ms QRS Dur : 086 ms QT Int : 386 ms P-R-T Axes : 000 009 038 degrees QTc Int : 440 ms Atrial fibrillation Nonspecific ST abnormality Abnormal ECG When compared with ECG of 30-JAN-2018 12:34, Atrial fibrillation has replaced Sinus rhythm Confirmed by HAROON CAMACHO, GRAHAM ([id number]), food editor TOMEKA HESS ([id number]) on 10/01/2019 1:06:15 PM Referred By: Naomie Remy Confirmed By:CURTIS PATIÑO MD
[2019-09-26 13:34] LABS: Hematocrit 44.7 % (40-54); Hemoglobin 15.7 g/dL (13.0-16.5); Mean Corp Hgb Conc 35.1 g/dL (32-36); Mean Corpuscular Hgb 32.4 pg (27.0-32.0); Mean Corpuscular Volume 92.2 fL (80-94); Mean Platelet Vol. 8.6 fl (6.2-12.0); Platelet Count 294 K/mm3 (150-450); RBC Distribution Width CV 13.1 % (11.6-14.6); RBC Distribution Width SD 43.6 fl (35.1-43.9); Red Blood Count 4.85 M/mm3 (4.6-6.2)
[2019-09-26 13:45] LABS: AST(SGOT) 14 U/L (15-37); Alanine Aminotransfer ALT/SGPT 29 U/L (16-61); Albumin, Serum 3.5 g/dL (3.2-5.0); Alkaline Phosphatase 46 U/L (45-117); Anion Gap 7 (5-15); BUN 17 mg/dL (7-18); BUN/Creat Ratio 19.2 RATIO (10-20); Bilirubin, Direct 0.16 mg/dL (0.00-0.30); Calcium,Total 8.6 mg/dL (8.5-10.1); Chloride 111 mmol/L (98-107); Creatinine, Serum 0.89 mg/dL (0.70-1.30); EST Glomerular Filtration Rate 92 mL/min (>60); Est Glom Filt Rate - Afr Amer 111 mL/min (>60); Globulin 3.4 g/dL (2.2-4.2); Glucose 109 mg/dL (74-106); Potassium 3.7 mmol/L (3.5-5.1); Protein, Total 6.9 g/dL (6.4-8.2); Sodium Level 142 mmol/L (136-145)
[2019-09-26 13:50] LABS: International Normalized Ratio 1.2
[2019-09-26 13:51] LABS: Partial Thromboplast Time 27.6 Seconds (24.1-36.2)
[2019-09-26] MEDS: Lactated Ringers 1,000 ML 100 ML IV (14:01)
[2019-09-26] MEDS: Cefazolin 2 GM in 0.9% Normal Saline 100 ML IV (16:11)
--- NOTE | 2019-09-26 16:24 | DCINST_ITS ---
Discharge Diet: No Restrictions - leave splint/dressing in place, keep dressing clean, dry, and intact; follow up in 2 weeks, call with concerns, Discharge Activity: May Not Drive May shower in (days): 1 Ice area for (Minutes): 20 - Every hour while awake. Weight Bearing Status: Weight bearing as tolerated Keep extremity elevated above heart level: Operative Extremity Call your doctor if your incision/area has: Continuous Slow Oozing, Sudden Increased Bleeding, Increased Pain/ Swelling, Increased Redness, Foul Smelling Discharge Call your doctor if you observe: Fever of 101 or Higher, Coldness, Increased Pain, Numbness or Tingling, Change in Color, Calf discomfort Allergies/Adverse Reactions: Allergies No Known Allergies Allergy (Verified 09/26/19 13:39) Medications to take at Discharge Aspirin [Aspirin, Baby] 81 mg PO DAILY@0800 12/05/17 Multivitamins,Therapeutic [Multivitamin] 1 tab PO DAILY 12/05/17 lisinopril 10 mg-hydrochlorothiazide 12.5 mg tablet 1 tab PO DAILY #90 tab 01/04/19 metoprolol succinate 50 mg tablet,extended release 24 hr 50 mg PO DAILY #90 tab 01/04/19 rivaroxaban 20 mg tablet 20 mg PO DAILY #30 tab 01/04/19 cephalexin 500 mg capsule 500 mg PO BID 10 Days #20 cap 09/25/19 Acetaminophen/Codeine #3 [Tylenol #3 Tablet] 1 - 2 tablet PO Q6H PRN PRN #30 tablet 09/26/19 The following prescriptions were given: Acetaminophen/Codeine #3 [Tylenol #3 Tablet] 1 - 2 tablet PO Q6H PRN PRN #30 tablet PRN Reason: Pain Transmission Status: Sent to [id number] Primary Care Physician: Care Physician,No Primary [Primary Care Provider] - Test Results: Test results from this visit will be discussed in further detail at your follow- up appointment, if applicable. Please Follow Up With: Naomie Remy, DO - [phone]
--- NOTE | 2019-09-26 16:25 | OP.PCM_ITS ---
Report of Operation Date of Procedure: 09/26/19 Pre-Operative Diagnosis: left hand injury from grinding wheel Post-Operative Diagnosis: same, third extensor tendon laceration/capsule laceration/bone laceration/foreign body debris Surgery/Procedure Performed:: left hand irrigation debridement of soft tissue and bone of third metacarpal/ foreign body debris removal, third extensor tendon repair, skin incision repair /debridement diesel pile hammer operator: Bebo Silva Type of Anesthesia:: General Anesthesiologist: Godwin Villalpando Estimated Blood Loss (mL): min Fluids Replaced: 1200cc Description of Procedure: Preop note Patient is 61-year-old male who injured himself with a grinding wheel at his home. Immediate pain and inability to stand his third finger was seen in the emergency room he was irrigated and the incision was closed see in my out and his tetanus was up-to-date. See my office a few days later he was not placed on antibiotic in the ER so we did place him on antibiotics at that time. However there is no signs of infection at seen upon the office visit. We did schedule him for surgery the following day. Risk benefits and alternatives were discussed with patient. Risk include but not not limited to blood loss, blood clot, infection, neurovascular, failure procedure, loss of life and loss of limb. Patient is aware like proceed with left hand irrigation debridement and extensor tendons repair as indicated as patient was unable to extend his third finger upon physical examination. Operative note Patient seen and examined preop holding area. Pain was marked. Patient brought to the operating placed supine on the operating table. Signed, anesthesia, antibiotics were administered. Left arm was prepped and draped usual sterile fashion with tourniquet around his upper arm. We marked out our previous laceration of extended and patella and extending proximally and about a 45 degree angle. Timeout is performed. We then elevate exsanguinated the hand and tourniquet was raised her pressure of 250 torr. We then used his previous incision again with a 15 blade and then extended it proximally dissect down tenotomies to level of the extensor tendon was obviously torn and lacerated complete of his third we then were able to visualize and dissected down to the and indices as well as the fourth to ensure that the tendons were all intact which we did range of motion of all the fingers were to ensure that the tendons were intact which they were. We moved back to her third finger we debrided back with extensor tendon debrided back to the capsule and then there was actually bony debris at the level of the metacarpal and bony debris and there was an indentation from the laceration in the bone which was debrided as well. We irrigated with copious amounts of sterile saline we use a combination of a rongeur and mosquito debride back the bone to ensure that we had as much bony debris removed as we could. We again irrigated the incision with copious necessarily loosely closed the capsule and then repaired our tendon in standard Krak?w with a #4 with a 4-0 Ethibond. Please note that we closed the capsule loosely with a 2-0 Vicryl. We then closed the we then repaired the extensor tendon in extension with the finger in full extension next actually hyperextension. We oversewed the edges with a 4-0 Vicryl. Irrigated the incision once more repaired and did revise the incision as it was lacerated and it was macerated the edges from his injury. We then closed the skin with i nterrupted 4-0 nylon stitches.. Tourniquet deflated for total working time of 5 minutes. Sterile dressings were applied and a splint with a with a finger actually in hyperextension was applied to the left hand. Patient tired procedure well no complication transferred recovery room in stable condition Postoperative note Splint until seen in the office and then will initiate occupational therapy Prescription sent to patient's pharmacy Discussed with Discussed call with increased pain numbness tingling further issues arise Dragon disclaimer This note was generated with [employer] dictation software. It may contain incorrect words, spelling, and punctuation that were not noted in checking the note before signing.
[2019-09-26] MEDS: HYDROcodone Bitartrate/Apap 5/325 Tablet PO (18:57)
== END 2019-09-26 20:10 | disposition home or self-care (01) ==
LOC: SDC 13:01 → AC 13:02
PROVIDERS: Anesthesiology; Referring Provider Orthopaedic Surgery; Visit Provider Orthopaedic Surgery
PROC: (CPT 11044; principal; 2019-09-26 14:05)
DX: S66.323A Laceration of extensor muscle, fascia and tendon of left middle finger at wrist and hand level, initial encounter (principal); S61.422A Laceration with foreign body of left hand, initial encounter; W27.8XXA Contact with other nonpowered hand tool, initial encounter; Y93.9 Activity, unspecified; Y92.9 Unspecified place or not applicable; Y99.9 Unspecified external cause status; I48.91 Unspecified atrial fibrillation; I10 Essential (primary) hypertension; Z79.01 Long term (current) use of anticoagulants; Z79.82 Long term (current) use of aspirin; Z79.899 Other long term (current) drug therapy; Z87.891 Personal history of nicotine dependence
CPT/HCPCS: 11044; 26418; 36415; 80048; 80076; 85027; 85610; 85730; 93005; J7120; J2405

== ENCOUNTER 2019-10-18 09:44 | Outpatient (RCR) | payer MEDICAID, SELFPAY ==
[2019-10-11 09:13] VITALS: BMI 28.5
--- NOTE | 2019-10-18 16:14 | HP.OTEVAL_ITS ---
Patient's Visit Information ELLIS BROWNLEE is a 64 year old M, referred to Occupational Therapy by TU Lu, with a diagnosis of left extensor tendon laceration. Date of Evaluation: 10/18/19 Occupational Therapist: YAHAIRA Bello/Nataliya, CHT - Subjective Subjective: This 64 year old male was seen for OT eval with dx of left third extensor tendon repair. sx was 09/26/19. pt states injury was 09/21/19. pt is right handed. PT 3 week post op from left hand irrigation debridement of soft tissue and bone of third metacarpal/ foreign body debris removal, third extensor tendon repair, skin incision repair /debridement. Denies numbness, tingling or other associated symptoms. Due to healing structures pt demo need for increase help with all ADls and IADLS at this time. - ADLs Eating: Use silverware, Drink from glass Yard: [place], Use shovel Miscellaneous: Use hand tools, Use power tools - ROM ROM Comments: left MF MCP ext -15 flex NT right 0/85. left MF PIP 0/15 right 0/95 - Strength [place] Supervisor: right 105# left NT Lateral Pinch: right 22# left NT Tripod Pinch: right 18# left NT Strength Comments: Due to healing tendon structure pt limited with resisitve testing. - Edema Wrist: right 18cm left 18.5cm PIP: right MF 6.8 left 7.6 Proximal Phalanx: right 22cm left 23cm - Sensation Sensation Comments: reports tingling sensation - Quick DASH-Disab of Arm,Shoulder& Hand Quick DASH Score: 52.2725 - Goals Goal:100% adherence to protocol: Yes Comment: extensor tendon repair zone 5 Goal:Daily scar massage when approriate: Yes Goal:ROM equal to unaffected hand: Yes Goal:[place] Supervisor/Pinch strength at least 75% of unaffected hand: Yes Goal:No pain with affected hand use: Yes Goal:PIP Circumferences equal to unaffected hand: Yes Goal:Full use of affected hand in daily activities including: Yes Goal:Decrease scar hypersensitivity: Yes - Rehabilitation General Assessment: ELLIS BROWNLEE is a 64 year old M here today for 3 week post op from left hand irrigation debridement of soft tissue and bone of third metacarpal/ foreign body debris removal, third extensor tendon repair, skin incision repair /debridement. Denies numbness, tingling or other associated symptoms. Pt limited with all ADls and IADLS at this time due to healing structures of left hand. Pt demo need for skilled OT services 2x week for 6 weeks to return pt to PLOF- Today therapist ed. pt on tendon repair and zone 5 tendon repair protocol. Therapist stressed to pt light MP flex to 30* only with [place] orthosis on- allowing PIP and DIP motion of IF, MF and RF. Pt demo understanding and demo. ex. well- pt demo good MP ext ability. Pt ed. on edema and scar mtg. Pt demo understanding and agree to POC. Rehabilitation Potential: Good - Anticipated Interventions Anticipated Interventions: Early Active Motion, A/AAROM/PROM, Strengthening, Edema Control, Scar Care, Triggerpoint Release, Desensitization, Sensory Retraining, Modalities, Orthoses, Joint Protection/Energy Conservation, Ergon omic Education - Visit Plan Frequency: 2x /Week Duration: 6 Weeks TEXT: Thank you for the opportunity to evaluate your patient. For Medicare and Medicare HMO plans, please review the plan of care and approve it. It will need to be FAXED BACK to us at [phone] for Medicare purposes. Please let me know if there are questions or concerns regarding this plan of care. Physician Signature: Date:
--- NOTE | 2020-04-04 16:37 | HP.OT.NRP ---
ELLIS BROWNLEE was seen in my office for initial evaluation on 10/18/19. The following Plan of Care was established for this patient: pt seen for OT eval only and was is d/c at this time. Initial Frequency: 2x /Week Initial Duration: 6 Weeks Anticipated Interventions: Early Active Motion, A/AAROM/PROM, Strengthening, Edema Control, Scar Care, Triggerpoint Release, Desensitization, Sensory Retraining, Modalities, Orthoses, Joint Protection/Energy Conservation, Ergonomic Education This patient was last seen in our office . Pertinent comments regarding their Occupational therapy will appear below: At this point I will be discontinuing this patient from occupational therapy. I would be happy to see this patient again in the future if found appropriate by the physician. Thank you! Mary Lowe, OTR/L, CHT
== END 2019-10-18 19:00 | disposition home or self-care (01) ==
LOC: OT 09:44
PROVIDERS: Referring Provider Physician Assistant; Visit Provider Physician Assistant
DX: Z98.890 Other specified postprocedural states (principal)
CPT/HCPCS: 97166; 97167

== ENCOUNTER 2021-06-15 18:30 | Emergency (ER) | payer MEDICARE, MEDICAID, SELFPAY ==
[2021-06-15 18:31] VITALS: BP 97/72; PULSE 110; RESP 16; TEMP 37.2; O2SAT 93; BMI 27.7
--- NOTE | 2021-06-15 20:02 | CT_ITS ---
INDICATION: abdominal pain EXAMINATION: CT Abdomen And Pelvis W/ Contrast Injection TECHNIQUE: Helically acquired images were obtained of the abdomen and pelvis after IV contrast. A radiation dose optimization technique was used for this scan. IV Contrast dosage and agent: IV 100mL Isovue-300 Oral contrast: None. COMPARISON: 04/23/2019 FINDINGS: Visualized lung bases: Bilateral interstitial and airspace opacities in the lung bases. Liver: Unremarkable Gallbladder: Unremarkable Spleen: Unremarkable Pancreas: Unremarkable Adrenal Glands: Unremarkable Kidneys: 3.7 cm simple cyst in the left midpole. Vasculature: Mild scattered aortoiliac atherosclerotic calcifications. GI Tract: Scattered diverticula throughout the colon without evidence of inflammation. Small hiatal hernia. Lymphadenopathy: None Peritoneum: No ascites. Bladder: Unremarkable Reproductive organs: The prostate is moderately enlarged. Bones/Soft tissues: No suspicious osseous or soft tissue lesions CT/Abdomen/Pelvis W IV Cont ONLY IMPRESSION: Bilateral groundglass interstitial and airspace opacities in the lung bases concerning for infection. Diverticulosis. Small hiatal hernia. Moderate prostatomegaly. Correlate with PSA levels. Electronically Signed: Lonnie Gutierrez MD at 21:57 EDT Tel , Service support ,
--- NOTE | 2021-06-15 20:06 | ED.VIS.GI ---
HPI HPI - GI History of Present Illness Chief Complaint: Diarrhea Informant: patient Abdominal Pain/Flank Pain Onset: Weeks Context: Gradual Onset Timing: Intermittent Quality: Cramping Location: Diffuse Current Severity: Mild Maximum Severity: Mild Nausea/Vomiting/Emesis GI Symptom: Positive for Nausea; Negative for Vomiting Diarrhea/Melena/Hematochezia GI Symptom: Positive for Diarrhea Onset: Weeks Stool Quality: Positive for Watery Severity: Mild Associated Symptoms Associated Symptoms: Negative for Dysuria, Frequency, Hematuria and Urgency Narrative Narrative: 66-year-old male on Xarelto for A. fib. States the last 2 weeks has had intermittent crampy abdominal discomfort and diarrhea. No more than 2 episodes a day. He said it is watery and sometimes black. He denies any bright red blood. He said he no hematemesis. Patient is somewhat of a limited informant because he said he cannot read or write and he does not know his medications that well. Prior similar symptoms: Yes Recent Illness/Hospitalization: No PFSH PFSH Medical History Alcohol abuse Carpal tunnel syndrome Essential (primary) hypertension Longstanding persistent atrial fibrillation Home Medications multivitamin with folic acid 1 tab PO DAILY 12/05/17 [History Last Taken 01/30/18] lisinopril 10 mg-hydrochlorothiazide 12.5 mg tablet 1 tab PO DAILY #90 tab 01/14/21 [Rx Last Taken Unknown] metoprolol succinate 50 mg tablet,extended release 24 hr 50 mg PO DAILY #90 tab 01/14/21 [Rx Last Taken Unknown] rivaroxaban 20 mg tablet 20 mg PO DAILY #90 tab 01/14/21 [Rx Last Taken Unknown] loperamide [Imodium A-D] 2 mg PO Q4H PRN #7 cap 06/15/21 [Rx Last Taken Unknown] Allergy/AdvReac Type Severity Reaction Status Date / Time No Known Allergies Allergy Verified 06/15/21 18:31 Family History Brother Cancer Pancreatic cancer Surgical History History of appendectomy History of cardioversion (01/30/18) Social History Smoking Status: Former smoker alcohol intake: current alcohol intake frequency: 3 or more drinks per day Alcohol type: beer ROS ROS ED ROS Narrative Diarrhea. Diffuse abdominal pain. Possible black stool. Review of Systems ROS Unobtainable: Denies due to encephalopathy Constitutional Constitutional ED: Denies chills or fever(s) ENT ENT ED: Denies ear pain or sore throat Cardiovascular Cardiovascular: Denies chest pain Respiratory/Chest Respiratory/Chest: Denies cough or dyspnea Gastrointestinal Gastrointestinal: Reports abdominal pain, diarrhea and nausea; Denies constipation or vomiting Genitourinary Genitourinary ED: Denies dysuria or hematuria Musculoskeletal Musculoskeletal: Denies arthralgias or myalgias Integumentary Denies rash Neurologic Neurologic: Denies headache(s) Psychiatric Psychiatric: Denies depression Endocrine Endocrinology: Denies polyuria Hematologic/Lymphatic Hematologic/Lymphatic: Denies easy bruising Allergic/Immunologic Allergic/Immunologic ED: Denies urticaria EXAM Physical Exam Narrative Exam Narrative: 66-year-old male no acute distress vital signs stable. Initial blood pressure is low at 97/72. He does not look septic toxic. HEENT exam unremarkable. Neck nontender no lymphadenopathy. Lungs clear to auscultation. Abdomen soft nondistended only minimal tenderness. No peritoneal signs. No obstruction. Moving all 4 extremities. Back nontender. Neurologically is awake and alert. He is answering questions following commands. Const Vital Signs: 06/15/21 18:31 Temperature 98.9 F Temperature Source Temporal Pulse Rate 110 H Respiratory Rate 16 Blood Pressure 97/72 Blood Pressure Mean 80 Pulse Ox 93 Oxygen Delivery Method Room Air Positive well nourished and well developed; Negative for cachectic, contractures or unkempt General Appearance ED: well developed and NAD; Negative for unkempt, cachectic or contractures Nutritional Appearance: Negative for cachectic HEENT Reports dry mucous membranes normocephalic and atraumatic; Negative for trauma or tenderness Mouth ED: Yes dry mucous membranes Mouth: dry mucous membranes Eyes PERRL and EOMs intact bilaterally General Eye ED: Negative for pale conjunctiva or scleral icterus Neck no lymphadenopathy, supple and no JVD General: Negative for tenderness Resp normal respiratory effort and clear to auscultation bilaterally Auscultation: Negative for rales, rhonchi or wheezes Cardio regular rate, regular rhythm, S1 normal heart sound, S2 normal heart sound and no murmurs GI non-distended and no masses; Negative for non-tender Inspection: Negative for abdominal distention Auscultation: normoactive bowel sounds Palpation: soft and tender; Negative for guarding, rigid or rebound tenderness present Back/Spine no CVA tenderness General Back: Negative for CVA tenderness Cervical Spine: Negative for cervical spine tenderness Thoracic Spine / Upper Back: Negative for thoracic spinal tenderness Lumbar Spine / Lower Back: Negative for lumbar spinal tenderness Extremity full ROM General Extremety ED: Negative for edema or tenderness General Extremity: Negative for edema Neuro moves all extremities Sensorium / Orientation: alert, oriented to person, oriented to place and oriented to time; Negative for confused or lethargic Motor Exam: strength 5/5 throughout Psych mental status grossly normal Appearance: Negative for unkempt Skin Lesions: no lesions Rashes: no rashes MDM MDM MDM Narrative Medical decision making narrative: Older male on a blood thinner Xarelto for A. fib reportedly black diarrhea and abdominal pain. He may have a GI bleed. This could be a viral illness. Etc. Labs and CAT scan are being obtained. Repeat exam patient doing well at 20 3:10 PM. He is resting comfortably. He and I went over all his test results. He is comfortable being discharged home. I will obtain a Covid test and call him with the results if it is positive. Patient can follow-up with his insurance to get a primary care physician that is in this area. Fluids and rest. Imodium for the diarrhea. Lab Data Attestation: I reviewed the patient's lab results. Lab results narrative: CBC shows a white count of 6 hemoglobin is 17.5. Platelet count of 305,000. PT/INR of 18 and 1.6. Electrolytes sodium 132 gap 8. Creatinine 1.33. Liver enzymes unremarkable lipase normal at 327. Labs: Laboratory Results - last 24 hr 06/15/21 06/15/21 06/15/21 18:50 18:50 20:20 WBC 6.3 RBC 5.55 Hgb 17.5 H Hct 50.0 MCV 90.1 MCH 31.5 MCHC 35.0 RDW Std Deviation 39.8 RDW Coeff of Corin 11.9 Plt Count 305 MPV 9.3 Immature Gran % (Auto) 0.500 Neut % (Auto) 85.7 H Lymph % (Auto) 9.4 L [place] % (Auto) 4.1 Eos % (Auto) 0.0 Baso % (Auto) 0.3 Absolute Neuts (auto) 5.4 Absolute Lymphs (auto) 0.59 L Nucleated RBC % 0 Differential Comment SCANNED PT 18.3 H INR 1.6 Sodium 132 L Potassium 3.9 Chloride 99 Carbon Dioxide 25.0 Anion Gap 8 BUN 21 H Creatinine 1.33 H Estim Creat Clear Calc 62.58 Est GFR (MDRD) Af Amer 69 Est GFR (MDRD) Non-Af 57 L BUN/Creatinine Ratio 15.8 Glucose 118 H Calcium 8.7 Total Bilirubin 0.70 AST 34 ALT 38 Alkaline Phosphatase 47 Total Protein 7.8 Albumin 3.1 L Globulin 4.7 H Albumin/Globulin Ratio 0.7 L Lipase 327 Blood Type Antibody Screen 06/15/21 20:20 WBC RBC Hgb Hct MCV MCH MCHC RDW Std Deviation RDW Coeff of Corin Plt Count MPV Immature Gran % (Auto) Neut % (Auto) Lymph % (Auto) [place] % (Auto) Eos % (Auto) Baso % (Auto) Absolute Neuts (auto) Absolute Lymphs (auto) Nucleated RBC % Differential Comment PT INR Sodium Potassium Chloride Carbon Dioxide Anion Gap BUN Creatinine Estim Creat Clear Calc Est GFR (MDRD) Af Amer Est GFR (MDRD) Non-Af BUN/Creatinine Ratio Glucose Calcium Total Bilirubin AST ALT Alkaline Phosphatase Total Protein Albumin Globulin Albumin/Globulin Ratio Lipase Blood Type A POSITIVE Antibody Screen NEGATIVE Radiography Diagnostic Testing: Radiology Impression Abdomen/Pelvis CT 06/15/21 20:02 IMPRESSION: Bilateral groundglass interstitial and airspace opacities in the lung bases concerning for infection. Diverticulosis. Small hiatal hernia. Moderate prostatomegaly. Correlate with PSA levels. Electronically Signed: Lonnie Gutierrez MD at 21:57 EDT Tel , Service support , Discharge Plan Triage Chief Complaint: Diarrhea ED Provider: Omar Silver Dx/Rx/DC Orders Clinical Impression: Diarrhea Instructions: ED Diarrhea, Unknown Cause Prescriptions: New loperamide [Imodium A-D] 2 mg capsule 2 mg PO Q4H PRN (Reason: loose stool) Qty: 7 RF: 0 No Action multivitamin with folic acid 1 TABLET tablet 1 tab PO DAILY RF: 0 lisinopril-hydrochlorothiazide 10-12.5 mg tablet 1 tab PO DAILY Qty: 90 RF: 3 metoprolol succinate 50 mg tablet extended release 24 hr 50 mg PO DAILY Qty: 90 RF: 3 rivaroxaban 20 mg tablet 20 mg PO DAILY Qty: 90 RF: 3 Primary Care Provider: Care Physician,No Primary Referrals: Care Physician,No Primary [Primary Care Provider] - 1 Week if not improving Activity Restrictions/Additional Instructions: Plenty of fluids and rest. Imodium for the diarrhea. Follow-up with your doctor if not improving or return if feeling worse. Disposition Disposition: Home, Self Care
[2021-06-15 20:31] LABS: Absolute Lymphocyte Count 0.59 X10^3/uL (0.83-4.51); Absolute Neutrophil Count 5.4 X10^3/uL (2.0-7.7); Basophil# 0.02 X10^3/uL; Basophil% 0.3 % (0-1); Hemoglobin 17.5 g/dL (13.0-16.5); Lymphocyte # 0.59 X10^3/ul (0.83-4.51); Lymphocyte % 9.4 % (19-41); Mean Corpuscular Hgb 31.5 pg (27.0-32.0); Mean Corpuscular Volume 90.1 fL (80-94); Mean Platelet Vol. 9.3 fl (6.2-12.0); Monocyte# 0.26 X10^3/uL; Monocyte% 4.1 % (0-10); NRBC Flagged by Analyzer 0 % (0-5); Neutrophil # 5.39 X10^3/uL (2.7-7.7); Neutrophil % 85.7 % (47-70); POSITIVE DIFFERENTIAL YES; Platelet Count 305 K/mm3 (150-450); RBC Distribution Width CV 11.9 % (11.6-14.6); RBC Distribution Width SD 39.8 fl (35.1-43.9); Red Blood Count 5.55 M/mm3 (4.6-6.2); White Blood Count 6.3 K/mm3 (4.4-11.0)
[2021-06-15] MEDS: 0.9% Normal Saline 1,000 ML 125 ML IV (20:31)
[2021-06-15 20:32] LABS: Differential Indicated SCAN CRITERIA MET
[2021-06-15 20:40] LABS: International Normalized Ratio 1.6; Prothrombin Time (Protime)PT. 18.3 SECONDS (11.7-14.9)
[2021-06-15 20:45] LABS: ALB/GLOB Ratio 0.7 RATIO (0.9-2.4); AST(SGOT) 34 U/L (15-37); Alanine Aminotransfer ALT/SGPT 38 U/L (16-61); Albumin, Serum 3.1 g/dL (3.2-5.0); Alkaline Phosphatase 47 U/L (45-117); Anion Gap 8 (5-15); BUN 21 mg/dL (7-18); BUN/Creat Ratio 15.8 RATIO (10-20); Calcium,Total 8.7 mg/dL (8.5-10.1); Chloride 99 mmol/L (98-107); Creatinine, Serum 1.33 mg/dL (0.70-1.30); EST Glomerular Filtration Rate 57 mL/min (>60); Est Glom Filt Rate - Afr Amer 69 mL/min (>60); Estimated Creatinine Clearance 62.58 ml/min; Globulin 4.7 g/dL (2.2-4.2); Glucose 118 mg/dL (74-106); Lipase 327 U/L (73-393); Potassium 3.9 mmol/L (3.5-5.1); Protein, Total 7.8 g/dL (6.4-8.2); Sodium Level 132 mmol/L (136-145)
[2021-06-15 21:07] LABS: Differential Comment SCANNED
[2021-06-15 23:29] VITALS: BP 110/71; PULSE 71; RESP 16; O2SAT 94
== END 2021-06-15 23:30 | disposition home or self-care (01) ==
PROVIDERS: Emergency Provider Emergency Medicine
DX: R19.7 Diarrhea, unspecified (principal); R10.9 Unspecified abdominal pain; R11.0 Nausea; I10 Essential (primary) hypertension; G56.03 Carpal tunnel syndrome, bilateral upper limbs; I48.11 Longstanding persistent atrial fibrillation; Z79.01 Long term (current) use of anticoagulants; Z79.899 Other long term (current) drug therapy; Z87.891 Personal history of nicotine dependence
CPT/HCPCS: 74177; 80053; 83690; 85025; 85610; 86850; 86900; 86901; 87426; 96360; 96361; 99283; J7030; Q9967; A4216

== ENCOUNTER → 2022-02-11 | Outpatient (CLI) | payer MEDICARE, MEDICAID, SELFPAY ==
[2022-02-11 11:52] LABS: AST(SGOT) 18 U/L (15-37); Alanine Aminotransfer ALT/SGPT 33 U/L (16-61); Albumin, Serum 3.6 g/dL (3.2-5.0); Alkaline Phosphatase 49 U/L (45-117); Anion Gap 5 (5-15); BUN 17 mg/dL (7-18); BUN/Creat Ratio 18.1 RATIO (10-20); Calcium,Total 9.2 mg/dL (8.5-10.1); Chloride 104 mmol/L (98-107); Creatinine, Serum 0.94 mg/dL (0.70-1.30); EST Glomerular Filtration Rate 86 mL/min (>60); Est Glom Filt Rate - Afr Amer 104 mL/min (>60); Globulin 3.5 g/dL (2.2-4.2); Glucose 108 mg/dL (74-106); Magnesium 2.4 mg/dL (1.6-2.6); Protein, Total 7.1 g/dL (6.4-8.2); Sodium Level 138 mmol/L (136-145)
== END | disposition home or self-care (01) ==
LOC: LAB 10:27
PROVIDERS: Referring Provider Nurse Practitioner Family; Visit Provider Nurse Practitioner Family
DX: I48.11 Longstanding persistent atrial fibrillation (principal); I10 Essential (primary) hypertension
CPT/HCPCS: 36415; 80053; 83735

== ENCOUNTER 2022-09-16 15:59 | Emergency (ER) | payer MEDICARE, MEDICAID, SELFPAY ==
[2022-09-16 16:01] VITALS: BP 175/95; PULSE 66; RESP 15; TEMP 36.3; O2SAT 99; BMI 26.4
[2022-09-16 16:23] VITALS: BP 175/95; PULSE 66; RESP 15; TEMP 36.3; O2SAT 99
--- NOTE | 2022-09-16 16:28 | EDS_ITS ---
HPI History of Present Illness Chief Complaint: Bite Informant: patient Narrative Narrative: [id number] male presents for evaluation of dog bite injuries. He took his brother to home where he is working on drywall, they opened the basement door touch lunged at him. Bit his right wrist right thigh. From records from injuries had tetanus November 2017 from left hand injury with tendon laceration at that time. Patient is on Xarelto for history of persistent atrial fibrillation. History of hypertension. Bleeding is controlled. No paresthesias. No loss of function. Tetanus Immunization: <5 years PFSH PFS Medical History Alcohol abuse Carpal tunnel syndrome Essential (primary) hypertension Longstanding persistent atrial fibrillation Home Medications multivitamin with folic acid 400 mcg tablet 1 tab PO DAILY 12/05/17 [History Last Taken 01/30/18] metoprolol succinate 50 mg tablet,extended release 24 hr 50 mg PO DAILY #90 tabs 01/13/22 [Rx Last Taken Unknown] rivaroxaban 20 mg tablet 20 mg PO DAILY #90 tabs 01/13/22 [Rx Last Taken Unkno wn] amoxicillin 875 mg-potassium clavulanate 125 mg tablet 1 tab PO BID #14 tabs 09/16/22 [Rx Last Taken Unknown] lisinopril 10 mg-hydrochlorothiazide 12.5 mg tablet 1 tab PO DAILY 09/16/22 [History Last Taken Unknown] Allergy/AdvReac Type Severity Reaction Status Date / Time No Known Allergies Allergy Verified 09/16/22 16:04 Family History Brother Cancer Pancreatic cancer Surgical History History of appendectomy History of cardioversion (01/30/18) Social History Smoking Status: Former smoker how long ago did patient quit smokin alcohol intake: current alcohol intake frequency: 3 or more drinks per day Alcohol type: beer substance use type: does not use caffeine: Yes Type: coffee Number of servings: 3 ROS ROS ED Constitutional Constitutional ED: Denies chills, fever(s) or sweats Eyes Eyes: Denies change in vision ENT ENT ED: Denies dysphagia or sore throat Cardiovascular Cardiovascular: Denies chest pain, leg edema, palpitations or racing heartbeat Respiratory/Chest Respiratory/Chest: Denies cough, dyspnea or dyspnea on exertion Gastrointestinal Gastrointestinal: Denies abdominal pain, diarrhea, nausea or vomiting Genitourinary Genitourinary ED: Denies dysuria, hematuria or urinary frequency Musculoskeletal Musculoskeletal: Denies back pain, extremity pain or neck pain Integumentary Reports wounds; Denies rash Neurologic Neurologic: Denies headache(s), paresthesias or weakness EXAM Physical Exam Const Vital Signs: 09/16/22 16:01 09/16/22 16:23 09/16/22 18:33 Temperature 97.4 F L 97.4 F L Temperature Source Temporal Temporal Pulse Rate 66 66 71 Respiratory Rate 15 15 16 Blood Pressure 175/95 H 175/95 H 123/79 H Blood Pressure Mean 121 121 Pulse Ox 99 99 98 Oxygen Delivery Method Room Air Room Air Positive well nourished and well developed General Appearance ED: well developed and NAD HEENT Reports moist mucous membranes normocephalic and atraumatic Eyes PERRL, EOMs intact bilaterally and conjunctivae normal General Eye ED: Yes normal appearance of both eyes Neck no lymphadenopathy and supple General: Negative for tenderness Chest Wall Chest: Negative for tenderness Resp normal respiratory effort and normal air movement Effort and Inspection: symmetric chest movement; Negative for respiratory distress Cardio regular rate, regular rhythm and no murmurs Peripheral Pulses: pulses 2+ throughout GI normal to inspection, nondistended, normoactive bowel sounds and non-tender Palpation: Negative for guarding or rebound tenderness present Back/Spine no CVA tenderness and no thoracic nor lumbar tenderness Extremity full ROM Extremity Narrative: Right upper extremity: Superficial laceration dorsal aspect of the wrist 5 cm in length, no clear tendon exposure. There is full extension of all digits with no pain against resistance. Right lower extremity: Couple punctures and abrasions lateral distal thigh. No lacerations. No active bleeding. Left upper extremity: Full range of motion without tenderness. Left lower extremity: No signs of injuries. Pulses intact distally in all 4 extremities. General Extremety ED: Negative for edema or tenderness General Extremity: Negative for edema Neuro oriented x3 and no sensory deficits noted Sensorium / Orientation: awake and alert Skin Skin Narrative: See above MDM MDM MDM Narrative Medical decision making narrative: Patient dog bite right wrist right thigh. Right wrist x-ray 3 views reviewed by myself read by radiology no radiopaque foreign bodies. Exam has no tendon inju ry. He is on Xarelto however is not bleeding. Loose sutures were placed. He started on Augmentin. Tetanus was in November 2017. Reported has follow-up with his hand specialist Tuesday for evaluation carpal tunnel of his right hand. He will keep this appointment. Signs of infection discussed with strict return precautions. All questions were answered. Procedure note: Laceration repair. Verbal consent. Prior to repair, patient's hand was soaked and cleansed and all of Betadine mix with saline water. 3 cc 1% lidocaine used for local analgesia additional 500 cc normal saline a bottle sp ray was used for flushing of the wound on the right wrist. A total of 2, 4-0 nylon simple interrupted sutures placed with loose approximation. Dressing was placed by myself. Patient tolerated procedure well. Radiography Diagnostic Testing: Clinical Impression(s) from Imaging Studies Wrist X-Ray 09/16/22 16:45 IMPRESSION: Soft tissue injury without finding of fracture or radiopaque foreign body. Electronically Signed: Ishaan Rosa MD at 17:06 EST Reading Location ID and State: [facility] / [place] Tel , Service support , Discharge Plan Triage Chief Complaint: Bite ED Provider: Hans Bernstein Dx/Rx/DC Orders Clinical Impression: Laceration of right wrist without complication, Dog bite, Puncture wound of right thigh Instructions: ED Dog Bite, ED Laceration Extremity Prescriptions: New amoxicillin-pot clavulanate 875-125 mg tablet 1 tab PO BID Qty: 14 0RF No Action multivitamin with folic acid 1 TABLET tablet 1 tab PO DAILY lisinopril-hydrochlorothiazide 10-12.5 mg tablet 1 tab PO DAILY metoprolol succinate 50 mg tablet extended release 24 hr 50 mg PO DAILY Qty: 90 3RF rivaroxaban 20 mg tablet 20 mg PO DAILY Qty: 90 3RF Primary Care Provider: Care Physician,No Primary Referrals: Care Physician,No Primary [Primary Care Provider] - Activity Restrictions/Additional Instructions: 2 loose 4-0 sutures placed in right wrist due to dog bite. Take antibiotic as prescribed. Tylenol as needed avoid NSAIDs due to being on Xarelto. Return if worsening symptoms. Otherwise keep your follow-up with your hand specialist on Tuesday Disposition Disposition: Home, Self Care Discharge Date/Time: 09/16/22 18:36
--- NOTE | 2022-09-16 16:45 | RAD_ITS ---
STUDY: X-RAY - RIGHT WRIST REASON FOR EXAM: Male, 67 years old. Injury -- dog bite TECHNIQUE: 3 view(s) of the wrist were obtained. COMPARISON: None. FINDINGS: Normal visualized distal radius and ulna. Normal radiocarpal articulation. Normal distal radioulnar articulation. Normal carpal bones. Normal carpal articulations. Normal carpometacarpal articulation of the thumb. Normal second through fifth carpometacarpal articulations. Normal visualized metacarpal bones. Small soft tissue gas dorsal to the radiocarpal articulation. There is no demonstrated acute fracture. There is no demonstrated metallic or radiopaque foreign body. RAD/Wrist min 3 Views IMPRESSION: Soft tissue injury without finding of fracture or radiopaque foreign body. Electronically Signed: Ishaan Rosa MD at 17:06 EST ,
[2022-09-16] MEDS: Lidocaine 1% (20 ml mdv) 20 ML Vial INFILT (16:47)
[2022-09-16] MEDS: Amox/Clavulanate 875 MG Tablet PO (16:47)
--- NOTE | 2022-09-16 18:05 | CM.ED ---
Social Work Consult: No Primary Care Physician Referral source: Self referral. This social worker masters met with patient in room. This social worker masters met with patient in room. Introduced self and social worker masters role. Patient agreeable to speak with this social worker masters. This social worker masters broached topic of primary care physician for patient. Patient confirms to not have a primary care physician. This social worker masters facilitating conversation with patient about importance/value of having a primary care physician. Patient voiced understanding and states I need to set a doctor up. Patient agreeable to this social worker masters providing patient with list of in-network primary care physicians that are local to patient geographical region. Patient reports to have all other needs met in the community including housing, transportation, and food. Patient denies concerns on returning to the community. No further services requested or indicated. Fahad DUMONT, ERIC
[2022-09-16 18:33] VITALS: BP 123/79; PULSE 71; RESP 16; O2SAT 98
== END 2022-09-16 18:36 | disposition home or self-care (01) ==
PROVIDERS: Emergency Provider Emergency Medicine; Visit Provider Emergency Medicine
DX: S61.551A Open bite of right wrist, initial encounter (principal); I48.19 Other persistent atrial fibrillation; S71.151A Open bite, right thigh, initial encounter; W54.0XXA Bitten by dog, initial encounter; Y99.0 Civilian activity done for income or pay; I10 Essential (primary) hypertension; Z79.01 Long term (current) use of anticoagulants; Z79.899 Other long term (current) drug therapy; Z87.891 Personal history of nicotine dependence
CPT/HCPCS: 12002; 73110; 99284

== ENCOUNTER 2023-11-24 12:49 | Emergency (ER) | payer MEDICARE, MEDICAID, SELFPAY ==
[2023-11-24 12:51] VITALS: BP 128/84; PULSE 80; RESP 18; TEMP 36.2; O2SAT 98; BMI 29.0
--- NOTE | 2023-11-24 13:11 | RAD_ITS ---
STUDY: X-RAY - UNILATERAL RIBS ( LEFT ) WITH CHEST REASON FOR EXAM: Male, 68 years old. Rib pain TECHNIQUE - RIBS: 5 view(s) of the ribs. TECHNIQUE - CHEST: Single PA view of the chest. COMPARISON: Comparison made with prior chest radiograph dated December 05, 2014. FINDINGS - RIBS: Normal visualized ribs without a demonstrated fracture. FINDINGS - CHEST: Mild degree of left basilar atelectasis. There is no demonstrated pleural abnormality. Normal size heart. Normal mediastinum and jono. Normal visualized pulmonary arteries. Normal visualized aortic arch and descending thoracic aorta. Normal visualized thoracic spine. Normal visualized ribs, clavicles, and shoulders. Findings suggestive of a 1.9 cm rounded skin lesion in the left upper quadrant. RAD/Ribs Uni Min 3V w/PA Chest IMPRESSION: RIBS: Normal x-ray examination of the ribs. CHEST: Mild left basilar atelectasis. Electronically Signed: Car Perez MD at 13:42 EST ,
--- NOTE | 2023-11-24 13:12 | EDS_ITS ---
HPI <KRISTIN Michaels - Last Filed: 11/24/23 14:14> History of Present Illness Chief Complaint: Chest Other Narrative Narrative: Patient is a 68-year-old male with history of alcohol abuse, hypertension, atrial fibrillation who presents to the emergency department left rib pain. Patient states this morning around 11:30 AM, he was up on his truck tire leaning over the truck bed on his left ribs when he heard a pop. He states he then had some pain. While he is been laying in bed he does feel slightly better however he has worsening pain with coughing, rotating. He denies any fever or chills, denies any traumatic fall. PFSH <KRISTIN Michaels - Last Filed: 11/24/23 14:14> [facility] Medical History Alcohol abuse Carpal tunnel syndrome Essential (primary) hypertension Longstanding persistent atrial fibrillation Home Medications multivitamin with folic acid 400 mcg tablet 1 tab PO DAILY 12/05/17 [History Last Taken 01/30/18] lisinopril 10 mg-hydrochlorothiazide 12.5 mg tablet 1 tab PO DAILY #90 tabs 01/04/23 [Rx Last Taken Unknown] metoprolol succinate 50 mg tablet,extended release 24 hr 50 mg PO DAILY #90 tabs 01/04/23 [Rx Last Taken Unknown] rivaroxaban 20 mg tablet 20 mg PO DAILY #90 tabs 01/04/23 [Rx Last Taken Unknown] Allergy/AdvReac Type Severity Reaction Status Date / Time No Known Allergies Allergy Verified 11/24/23 12:50 Family History Brother Cancer Pancreatic cancer Surgical History History of appendectomy History of cardioversion (01/30/18) Social History Smoking Status: Former smoker how long ago did patient quit smokin alcohol intake: current alcohol intake frequency: 3 or more drinks per day Alcohol type: beer substance use type: does not use caffeine: Yes Type: coffee Number of servings: 3 ROS <KRISTIN Michaels - Last Filed: 11/24/23 14:14> ROS ED ROS Narrative Constitutional: Negative for fever, chills, weight loss, weakness Eyes: Negative for vision loss, vision change, double vision ENT: Negative for any sore throat, ear pain, congestion Cardiovascular: Negative for any chest pain, tightness, palpitations Respiratory: Negative for any cough, sputum production, hemoptysis, dyspnea, dyspnea on exertion, orthopnea Gastrointestinal: Negative for any abdominal pain, nausea, vomiting, diarrhea, constipation, blood in stool, blood in vomit : Negative for any urinary frequency, dysuria, retention, blood in urine Muscle skeletal: Negative for any neck pain, back pain. Positive left rib pain Neurological: Negative for any headache, syncope, dizziness Skin: Negative for any rashes, itching, abrasions, lacerations Psychiatric: Negative for any depression, anxiety, stress, suicidal ideation, homicidal ideation Hematologic: Negative for any excessive bruising, easy bleeding EXAM <KRISTIN Michaels - Last Filed: 11/24/23 14:14> Physical Exam Narrative Exam Narrative: Vital signs reviewed. HEET: Head normocephalic atraumatic, TMs clear bilaterally. Posterior pharynx is clear, moist mucous membranes. Nares clear bilaterally. Neck: Supple with no lymphadenopathy or tenderness. No signs of meningismus. Cardiac: Regular rate and rhythm no murmurs gallops or rubs, equal peripheral pulses bilaterally. Respiratory: Lungs clear to auscultation bilaterally. Patient does have some left anterior lower chest wall pain. Worse on palpation. No crepitus noted. Abdomen: Soft, nontender, nondistended. No abdominal bruit or pulsatile masses. No hepatosplenomegaly Extremities: No peripheral edema, no signs of gross trauma or deformity. Active full range of motion of all extremities. Neuro: Cranial nerves II through XII intact, no focal neurological deficits. Skin: Clean dry and intact with no rash, purpura, petechiae, vesicles or pustules. Backs/flank: No CVA tenderness, no midline spinal tenderness, no deformity. Psych: Normal mood and affect. No SI, HI or acute psychosis. Const Vital Signs: 11/24/23 12:51 11/24/23 13:35 Temperature 97.2 F L Temperature Source Temporal Pulse Rate 80 Respiratory Rate 18 Respiratory Effort Normal Non-Labored Respiratory Pattern Normal Blood Pressure 128/84 H Blood Pressure Mean 98 Pulse Ox 98 <Dr. Omar Silver MD - Last Filed: 11/24/23 14:10> Physical Exam Const Vital Signs: 11/24/23 12:51 11/24/23 13:35 Temperature 97.2 F L Temperature Source Temporal Pulse Rate 80 Respiratory Rate 18 Respiratory Effort Normal Non-Labored Respiratory Pattern Normal Blood Pressure 128/84 H Blood Pressure Mean 98 Pulse Ox 98 [facility] <KRISTIN Michaels - Last Filed: 11/24/23 14:14> [facility] Radiography Diagnostic Testing: Clinical Impression(s) from Imaging Studies Ribs w/Chest X-Ray 11/24/23 13:11 IMPRESSION: RIBS: Normal x-ray examination of the ribs. CHEST: Mild left basilar atelectasis. Electronically Signed: Car Perez MD at 13:42 EST , Treatment and Re-Evaluation :: Differential diagnosis includes however is not limited to: Rib strain, rib contusion, rib fracture, pneumothorax, COPD exacerbation Patient appears generally well, patient appears nontoxic, vital signs are stable. Presenting to the emerged part with left rib pain after leaning over a truck bed. Patient will receive x-rays of the left ribs as well as a PA chest. Patient was offered ibuprofen, Tylenol, he refused. Patient looks to be in no distress, there is no crepitus noted. All radiologic examinations were read, reviewed by the emergency department attending. From these reads, a plan of care will be put in place. Patient's x-rays of the left rib series as well as the chest was unremarkable. No evidence of any fracture, pneumothorax thorax. At this time, patient will be discharged home. Patient will instructed to ice, use a pillow, ibuprofen, Tylenol. Patient did not want anything stronger for pain. At this time, patient will be stable for discharge. Given return precautions. Patient struck to take several deep breaths throughout the day. At this time, patient stable for discharge. <Dr. Omar Silver MD - Last Filed: 11/24/23 14:10> [facility] Narrative Medical decision making narrative: I have personally performed a face to face assessment of the patient and have reviewed the KARLA Note. I performed a substantive portion of the visit including all aspects of the following. My franklin findings include: History is [68-year-old male was leaning on his truck felt a pop in his left lower rib cage had pain since that time. This occurred today. No fall injury or trauma. No other complaints. Worse with movement.] Exam is [well-appearing 68-year-old male. Vital signs stable afebrile. Pulse ox 98% on room air no hypoxia. H EENT exam unremarkable. Neck nontender. Lungs clear to auscultation bilaterally. Heart regular rhythm no murmur rate about 80. Chest wall left lower rib cage reproducible pain. No crepitus. No subcu air. No bruising. No gross bony deformity. Rest of his ribs and chest wall is nontender. Abdomen soft nontender. Moving all 4 extremities. Nontender no edema. Normal range of motion. Normal strength.] Medical Decision Making [chest x-ray with rib series shows no obvious broken rib. I went over the x-rays with the patient. Explained to him if it was a nondisplaced fracture sometimes we do not pick it up on the x-ray. He did not want narcotic pain meds. Ice to the area. Pillow. Motrin and Tylenol.] Other additions or changes: [None] Patient is awake and alert. No focal motor deficits. History & Record Review Discussion w/independent historian: Patient Radiography Chest X-Ray - ED: 2 View, Read by ED Physician, Read by Radiologist, Heart, Lungs, Mediastinum, Bony Structures, No Acute Disease and Chronic Changes Diagnostic Testing: Clinical Impression(s) from Imaging Studies Ribs w/Chest X-Ray 11/24/23 13:11 IMPRESSION: RIBS: Normal x-ray examination of the ribs. CHEST: Mild left basilar atelectasis. Electronically Signed: Car Perez MD at 13:42 EST , Chest x-ray with rib series. 6 films. Interpreted both by myself and the radiologist shows no acute abnormality. No fracture. No pneumothorax. Discharge Plan Triage Chief Complaint: Chest Other ED Midlevel Provider: Ishaan Padilla ED Provider: Omar Silver Dx/Rx/DC Orders Clinical Impression: Contusion of rib Instructions: ED Rib Contusion or Minor Fracture Prescriptions: No Action multivitamin with folic acid 1 TABLET tablet 1 tab PO DAILY rivaroxaban 20 mg tablet 20 mg PO DAILY Qty: 90 3RF lisinopril-hydrochlorothiazide 10-12.5 mg tablet 1 tab PO DAILY Qty: 90 3RF metoprolol succinate 50 mg tablet extended release 24 hr 50 mg PO DAILY Qty: 90 3RF Primary Care Provider: Care Physician,No Primary Referrals: Care Physician,No Primary [Primary Care Provider] - Activity Restrictions/Additional Instructions: Ice to the area. Direct pressure with a pillow. Motrin and Tylenol for pain. This should progressively get better. If not follow-up for further evaluation. Disposition Disposition: Home, Self Care
[2023-11-24 14:14] VITALS: BP 00/00; PULSE 0; RESP 0; TEMP -17.7; TEMP 0; O2SAT 0
--- OUTSIDE RECORDS SUMMARY | 2023-11-24 19:45 | XMS RPT_ITS | CCD ---
Author Name Unknown Address [address] [place] [address] Organization [facility] Care Team Providers Care Channel Executive Name Role Phone Lonnie Ahn MD Primary Care Provider Pcp, No Primary Care Provider Unavailabl e Unavailable Primary Care Provider Unavailabl e Edda SWITCHBOARD MANAGER.LORI, Josie Primary Care Provider JOSIE BAÑUELOS Referring Unavailable EDDA, JOSIE Primary Care Unavailable JOSIE BAÑUELOS Attending Unavailable NIKOLAS COSTA Attending Unavailable ROVERTO VILLAREAL Referring Unavailable GOODMAN, PATRICIA Referring Unavailable GOODMAN, PATRICIA Attending Unavailable GOODMAN, PATRICIA Referring Unavailable GOODMAN, PATRICIA Attending Unavailable GOODMAN, PATRICIA Attending Unavailable GOODMAN, PATRICIA Referring Unavailable GOODMAN, PATRICIA Admitting Unavailable GOODMAN, PATRICIA Attending Unavailable KNOBLE, JOSIE Referring Unavailable KNALDEN, JOSIE Primary Care Unavailable Medications Completed/Discontinued Medications Medication Drug Class(es) Dates Sig (Normalized) Sig (Original) aspirin 81 mg oral tablet (11 sources) Platelet Aggregation Inhibitor, Nonsteroidal Anti-inflammatory Drug Aspirin 81 mg Tab Take 81 mg by mouth. 0 Active Problems Active Problems Problem Classification Problem Date Documented Date Episodic/Chronic Administrative/socia l admission (11 sources) Illiteracy; Translations: [Illiteracy and low-level literacy] 12-20-2012 Episodic Cardiac dysrhythmias (13 sources) Atrial fibrillation; Translations: [Unspecified atrial fibrillation] Onset: 12-05-2017 12-05-2017 Chronic Disorders of lipid metabolism (13 sources) Hyperlipidemia; Translations: [Hyperlipidemia, unspecified] Onset: 11-28-2013 11-28-2013 Chronic Esophageal disorders (11 sources) Gastroesophageal reflux disease; Translations: [Gastro-esophageal reflux disease without esophagitis] 12-19-2012 Chronic Essential hypertension (11 sources) Hypertensive disorder; Translations: [Essential (primary) hypertension] 09-22-2016 Chronic Other connective tissue disease (1 source) Pain in right hand; Translations: [Pain in right hand] Episodic Other connective tissue disease (1 source) Disorder of rotator cuff; Translations: [Unspecified disorder of synovium and tendon, right shoulder] 06-08-2023 Episodic Other injuries and conditions due to external causes (1 source) Injury of right shoulder; Translations: [Unspecified injury of right shoulder and upper arm, initial encounter] 06-01-2023 Episodic Other nervous system disorders (4 sources) Carpal tunnel syndrome of right wrist; Translations: [Carpal tunnel syndrome, right upper limb] Chronic Other nervous system disorders (1 source) Carpal tunnel syndrome, right upper limb; Translations: [Right carpal tunnel syndrome] Onset: 10-28-2022 Chronic Other non-traumatic joint disorders (11 sources) Joint pain; Translations: [Pain in unspecified joint] 12-19-2012 Episodic Other nutritional; endocrine; and metabolic disorders (11 sources) Metabolic syndrome X; Translations: [Metabolic syndrome] 12-25-2012 Chronic Other screening for suspected conditions (not mental disorders or infectious disease) (8 sources) Patient encounter status; Translations: [Encounter for screening for diabetes mellitus] Onset: 08-31-2023 08-31-2023 Episodic Past or Other Problems Problem Classification Problem Date Documented Da te Episodic/Chronic Other connective tissue disease (1 source) Pain in right hand; Translations: [Right hand pain] Onset: 09-16-2022 Episodic Other injuries and conditions due to external causes (1 source) Unspecified injury of right shoulder and upper arm, initial encounter; Translations: [Injury of right shoulder, initial encounter] Onset: 06-01-2023 Episodic Results Test Name Value Interpretation Reference Range Facil ity Vital Signs Date Time Vital Sign Value Performing Clinician Lexie rodriguez 08-31-2023 10:47-0500 Diastolic blood pressure 82 mm[Hg] Josie Bañuelos APRN.CNP Work Phone: [facility] 08-31-2023 10:47-0500 Systolic blood pressure 134 mm[Hg] Josie Bañuelos APRN.CNP Work Phone: [facility] 08-31-2023 10:31-0500 Body weight 93.44 kg Josie Bañuelos APRN.CNP Work Phone: [facility] 08-31-2023 10:31-0500 Heart rate 90 /min Josie Bañuelos SWITCHBOARD MANAGER.MANAGER BABY Work Phone: [facility] 08-31-2023 10:31-0500 Respiratory rate 16 /min Josie Bañuelos SWITCHBOARD MANAGER.MANAGER BABY Work Phone: [facility] 06-01-2023 14:00-0400 Body temperature 99 [degF] Roverto Athy PA-C Work Phone: [facility] 06-01-2023 14:00-0400 Body weight 88.45 kg Roverto Athy PA-C Work Phone: [facility] 06-01-2023 14:00-0400 Diastolic blood pressure 75 mm[Hg] Roverto Athy PA-C Work Phone: [facility] 06-01-2023 14:00-0400 Heart rate 74 /min Roverto Athy PA-C Work Phone: [facility] 06-01-2023 14:00-0400 Respiratory rate 22 /min Roverto Athy PA-C Work Phone: [facility] 06-01-2023 14:00-0400 SaO2% (BldA) [Mass fraction] 98 % Roverto Athy PA-C Work Phone: [facility] 06-01-2023 14:00-0400 Systolic blood pressure 136 mm[Hg] Roverto Athy PA-C Work Phone: [facility] Encounters Encounter Date Encounter Type Care Provider Facility Start: 09-12-2023 End: 09-12-2023 ambulatory JOSIE BAÑUELOS Facility:[facility] Start: 09-12-2023 End: 09-12-2023 Subsequent hospital visit by physician [facility] Work Phone: Radiology Procedures Date Procedure Procedure Detail Performing Clinician Start: 09-12-2023 Us abdominal aorta r eal time screen study aaa Josie Bañuelos APRN.MANAGER BABY Work Phone: Start: 08-31-2023 Lipid 1996 panel - S charo or Plasma Josie Bañuelos APRN.MANAGER BABY Work Phone: Start: 12-19-2018 Adult depression screening assessment Lonnie Ahn MD Work Phone: Start: 09-22-2016 Lipid 1996 panel - S charo or Plasma Josie Bañuelos APRN.MANAGER BABY Work Phone: Start: 01-15-2013 Colonoscopy Geovany Ahn MD Work Phone: Plan of Treatment Date Care Activity Detail Author Start: 09-21-2029 Urine microalbumin profile DTa P,Tdap,Td Vaccine (4 - Td or Tdap) [facility] Start: 08-31-2028 Lipid 1996 panel - S charo or Plasma Lipid Screening [facility] Start: 08-31-2028 Prostate Cancer Scre ening Discussion Prostate Cancer Screening Discussion [facility] Start: 08-31-2026 Diabetes Screening Diabetes Screenin g [facility] Start: 10-11-2024 Colonoscopy COLONOSCOPY [facility] Immunizations Immunization Date Immunization Notes Care Provider Fa [facility] 09-22-2016 influenza, injectabl e, quadrivalent, contains preservative Lonnie Ahn MD Work Phone: [facility] 09-22-2016 influenza virus vaccine, unspecified formulation Josie Bañuelos APRN.MANAGER BABY Work Phone: [facility] 06-18-2014 tetanus toxoid, redu joseline diphtheria toxoid, and acellular pertussis vaccine, adsorbed Lonnie Ahn MD Work Phone: [facility] Payers Date Payer Category Payer Medicare [facility] MEDICARE [facility] MEDICARE [id number] 2022-Present [phone] [address] [place] [address] Medicare [id number] 2021 Medicaid [facility] MEDICAID [employer] ARE [facility] MEDICAID [id number] 2021-Present [phone] [address] [place] [address] Medicaid [id number] 2021 Medicare [id number] 2016 Medicaid [facility] MEDICAID [facility] MEDICAID [id number] 2016-Present Medicaid [id number] Social History Date Type Detail Facility Start: 03-15-2019 End: 10-28-2022 Tobacco smoking status NHIS Former smoker [facility] Work Phone: End: 10-10-1978 History of tobacco use Current smoker [facility] Start: 03-15-2019 End: 06-08-2023 Cigarettes smoked current (pack per day) - Reported [facility] Start: 03-15-2019 End: 10-28-2022 Tobacco use and exposure Never used [facility] Start: 03-15-2019 End: 06-08-2023 Alcohol intake Current drinker of alcohol (finding) [facility] Start: 10-24-2012 End: 10-28-2022 Tobacco Comment in his teens x few years [facility] Start: 1955 Sex Assigned At Not on file [facility] End: 10-10-1978 History of tobacco use Cigarette Smoker [facility] Work Phone: Start: 06-01-2023 End: 06-08-2023 Tobacco use panel [facility] Adult Depression Screening Assessment 0 [facility] Start: 08-31-2023 Alcohol intake Ex-drinker (finding) [facility] Start: 1955 [facility] Start: 06-27-2023 Gender identity Identifies as male gender (finding) [facility] Start: 06-27-2023 Sexual orientation Heterosexual (eder mendez) [facility] Clinical Notes 11-13-2012 to 09-12-2023 Iram Eckert, CHRISTOPHE - 09/12/2023 10:00 AM ESTTelephone Encounter - Amanda Breaux RN - 09/08/2023 11:23 AM ESTTelephone Encounter - Josie Bañuelos APRN.CNP - 09/08/2023 11:03 AM EST Note Date & Type Note Facility 09-12-2023 Note HNO ID: [id number] Author: Iram Eckert RDMS Service: ? Author Type: Scientific Associate Type: Progress Notes Filed: 09/12/2023 10:14 AM Note Text: Radiology Service Progress Note PATIENT NAME: John Khan DATE OF SERVICE: September 12, 2023 TIME: 10:14 AM PATIENT IDENTITY VERIFICATION COMPLETED USING TWO (2) IDENTIFIERS: Name and Date of confirmed by patient verbally. FALL SCREENING: Has the patient had 2 falls in the last year or 1 fall with injury or currently using an Ambulatory Assistive Device (Walker, Cane, Wheelchair, Crutches, etc.)? No PATIENT GENDER DATA: Male PATIENT RELEVANT IMPLANT DATA REVIEWED: Not Applicable RADIOLOGY DEPARTMENT: Ultrasound PERIPHERAL IV DATA: Not applicable SIGNED BY: Iram Eckert RDMS RVT September 12, 2023 10:14 AM [facility] 09-12-2023 History of Presen t illness Narrative Radiology Service Progress Note PATIENT NAME: John Khan DATE OF SERVICE: September 12, 2023 TIME: 10:14 AM PATIENT IDENTITY VERIFICATION COMPLETED USING TWO (2) IDENTIFIERS: Name and Date of confirmed by patient verbally. FALL SCREENING: Has the patient had 2 falls in the last year or 1 fall with injury or currently using an Ambulatory Assistive Device (Walker, Cane, Wheelchair, Crutches, etc.)? No PATIENT GENDER DATA: Male PATIENT RELEVANT IMPLANT DATA REVIEWED: Not Applicable RADIOLOGY DEPARTMENT: Ultrasound PERIPHERAL IV DATA: Not applicable SIGNED BY: Iram Eckert RDMS RVT September 12, 2023 10:14 AM documented in this encounter [facility] 09-08-2023 Miscellaneous Notes Pt called and is notified of providers results and instructions. Pt voices understanding. Please contact Pt to schedule Urology appointment once order is placed. Amanda Breaux RN Please let patient know his PSA is elevated and I would recommend following up with urology. I have placed a consult and e ay schedule at his convenience. His cholesterol is also mildly elevated. I would encourage a low fat diet and exercise. documented in this encounter [facility] 08-31-2023 Note HNO ID: [id number] Author: Josie Bañuelos APRN.MANAGER BABY Service: ? Author Type: Nurse Practitioner Type: Progress Notes Filed: 08/31/2023 10:51 AM Note Text: Chief Complaint Patient presents with: Establish Care HPI John Khan is a 68 year old male who presents here today for Above Complaints.. Patient presents to establish care. Patient follows with cardiology however has not has PCP for sometime. Past medical history, appointments, medications, allergies reviewed. Previous Medical History PAST MEDICAL HISTORY Diagnosis Date Dysmetabolic syndrome impaired FBS GERD (gastroesophageal reflux disease) Hyperlipidemia Hypertension Illiterate Irregular heartbeat Joint pain hips, knees, back Previous Surgical History PAST SURGICAL HISTORY Procedure Laterality Date APPENDECTOMY ~1968 APPENDECTOMY HX COLONOSCOPY ~1968 rectal bleeding COLONOSCOPY FLX DX W/COLLJ SPEC WHEN PFRMD 01/15/2013 repeat due 2018 HERNIA REPAIR HX 1996 below umbilicus REVISE MEDIAN N/CARPAL TUNNEL SURG Right 10/28/2022 Right carpal tunnel release Family History FAMILY HISTORY Problem Relation Age of Onset Stroke Mother Prostate Cancer Father Diabetes Father Ischemic Heart Disease Brother other (pneumonia) Brother Ischemic Heart Disease Brother 49 49 Colon Cancer Brother 49 49 Cancer Brother throat Patient Allergies ALLERGIES No Known Allergies Current Medications Current Outpatient Medications on File Prior to Visit Medication Sig rivaroxaban (XARELTO) 20 mg tablet Take 20 mg by mouth daily with dinner. metoprolol tartrate, short acting, (LOPRESSOR) 50 mg tablet Take 50 mg by mouth once daily. lisinopril-hydrochlorothiazide (PRINZIDE,ZESTORETIC) 10-12.5 mg per tablet Take 1 tablet by mouth once daily. MULTIVITAMIN ORAL Take by mouth. predniSONE (DELTASONE) 20 mg tablet TAKE BY MOUTH ONE(1) TABLET THREE TIMES DAILY FOR 3 DAYS, THEN TAKE ONE(1) TABLET TWO(2) TIMES DAILY FOR 3 DAYS, THEN TAKE ONE(1) TABLET DAILY. (Patient not taking: Reported on 08/31/2023) meloxicam (MOBIC) 15 mg tablet Take 1 tablet by mouth once daily. (Patient not taking: Reported on 12/13/2022) Aspirin 81 mg Tab Take 81 mg by mouth. (Patient not taking: No sig reported) No current facility-administered medications on file prior to visit. Social History Social History Tobacco Use Smoking status: Former Packs/day: 1.00 Years: 9.00 Additional pack years: 0.00 Total pack years: 9.00 Types: Cigarettes Quit date: 10/10/1978 Years since quittin.9 Smokeless tobacco: Never Tobacco comments: in his teens x few years Substance Use Topics Alcohol use: Yes Alcohol/week: 9.0 standard drinks of alcohol Types: 9 Cans of Beer (12oz) per week Drug use: No Review of Symptoms REVIEW OF SYSTEMS SEE HPI EXAM: BP 145/89 Pulse 90 Resp 16 Wt 93.4 kg (206 lb) BMI 27.18 kg/m? General Appearance: Well appearing, alert, in no acute distress, well-hydrated, well nourished.. Skin: Skin color, texture, turgor normal, no suspicious rashes or lesions. Neck: Supple, no adenopathy; thyroid symmetric, normal size, no bruits. Lungs: Lungs clear to auscultation. No wheezing, rhonchi, rales.. Heart: RRR without murmur, gallop, or rubs. No ectopy. Abdomen: Normal abdominal exam, Abdomen soft, non-tender. Bowel sounds normal. No masses, organomegaly Musculoskeletal: No joint swelling, deformity, or tenderness. Peripheral Pulses: Normal. Neurologic: Gait normal. Reflexes normal and symmetric. Sensation grossly intact.. Health Maintenance List Abdominal Aortic Aneurysm Screening Never done BP Controlled (<130/80) Never done Shingrix Vaccine(1 of 2) Never done RSV Vaccine(1 - 1-dose 60+ series) Never done Diabetes Screening due on 09/22/2019 Annual PCP Team Chronic Disease Visit due on 03/07/2020 Pneumococcal Vaccine: 65+(1 - PCV) Never done Lipid Screening due on 09/22/2021 Prostate Cancer Screening Discussion due on 10/20/2021 Advance Directive Discussion Never done Depression Assessment Never done Influenza Vaccine(1) due on 04/08/2024 Covid-19 Vaccine(1) due on 08/31/2024 Colorectal Cancer Screening due on 10/11/2024 DTaP,Tdap,Td Vaccine(4 - Td or Tdap) due on 09/21/2029 Hepatitis C Screening Completed ASSESSMENT/PLAN: 1. Hyperlipidemia, unspecified hyperlipidemia type - ICD9: 272.4, ICD10: E78.5 (primary diagnosis) - Control undetermined, due for labs - Continue current medications - Counseled on healthy diet and regular exercise - Discussed need for and benefit of weight loss. BMI 27.18 kg/(m2) - LIPID PANEL, NONFASTING 2. Atrial fibrillation, unspecified type (HCC) - ICD9: 427.31, ICD10: I48.91 - CBC + DIFF - COMP METABOLIC PANEL 3. Screening for diabetes mellitus - ICD9: V77.1, ICD10: Z13.1 - HGB A1C 4. Screening for abdominal aortic aneurysm - ICD9: V81.2, ICD10: Z13.6 - US SCREENING FOR AAA 5. Screening (more content not included)... [facility] 08-31-2023 History of Presen t illness Narrative Chief Complaint Patient presents with: Establish Care HPI John Khan is a 68 year old male who presents here today for Above Complaints.. Patient presents to establish [facility]. Patient follows with cardiology however has not has PCP for sometime. Past medical history, appointments, medications, allergies reviewed. Previous Medical History PAST MEDICAL HISTORY Diagnosis Date Dysmetabolic syndrome impaired FBS GERD (gastroesophageal reflux disease) Hyperlipidemia Hypertension Illiterate Irregular heartbeat Joint pain hips, knees, back Previous Surgical History PAST SURGICAL HISTORY Procedure Laterality Date APPENDECTOMY ~1968 APPENDECTOMY HX COLONOSCOPY ~1968 rectal bleeding COLONOSCOPY FLX DX W/COLLJ SPEC WHEN PFRMD 01/15/2013 repeat due 2018 HERNIA REPAIR HX 1996 below umbilicus REVISE MEDIAN N/CARPAL TUNNEL SURG Right 10/28/2022 Right carpal tunnel release Family History FAMILY HISTORY Problem Relation Age of Onset Stroke Mother Prostate Cancer Father Diabetes Father Ischemic Heart Disease Brother other (pneumonia) Brother Ischemic Heart Disease Brother 49 49 Colon Cancer Brother 49 49 Cancer Brother throat Patient Allergies ALLERGIES No Known Allergies Current Medications Current Outpatient Medications on File Prior to Visit Medication Sig rivaroxaban (XARELTO) 20 mg tablet Take 20 mg by mouth daily with dinner. metoprolol tartrate, short acting, (LOPRESSOR) 50 mg tablet Take 50 mg by mouth once daily. lisinopril-hydrochlorothiazide (PRINZIDE,ZESTORETIC) 10-12.5 mg per tablet Take 1 tablet by mouth once daily. MULTIVITAMIN ORAL Take by mouth. predniSONE (DELTASONE) 20 mg tablet TAKE BY MOUTH ONE(1) TABLET THREE TIMES DAILY FOR 3 DAYS, THEN TAKE ONE(1) TABLET TWO(2) TIMES DAILY FOR 3 DAYS, THEN TAKE ONE(1) TABLET DAILY. (Patient not taking: Reported on 08/31/2023) meloxicam (MOBIC) 15 mg tablet Take 1 tablet by mouth once daily. (Patient not taking: Reported on 12/13/2022) Aspirin 81 mg Tab Take 81 mg by mouth. (Patient not taking: No sig reported) No current facility-administered medications on file prior to visit. Social History Social History Tobacco Use Smoking status: Former Packs/day: 1.00 Years: 9.00 Additional pack years: 0.00 Total pack years: 9.00 Types: Cigarettes Quit date: 10/10/1978 Years since quittin.9 Smokeless tobacco: Never Tobacco comments: in his teens x few years Substance Use Topics Alcohol use: Yes Alcohol/week: 9.0 standard drinks of alcohol Types: 9 Cans of Beer (12oz) per week Drug use: No Review of Symptoms REVIEW OF SYSTEMS SEE HPI EXAM: BP 145/89 Pulse 90 Resp 16 Wt 93.4 kg (206 lb) BMI 27.18 kg/m General Appearance: Well appearing, alert, in no acute distress, well-hydrated, well nourished.. Skin: Skin color, texture, turgor normal, no suspicious rashes or lesions. Neck: Supple, no adenopathy; thyroid symmetric, normal size, no bruits. Lungs: Lungs clear to auscultation. No wheezing, rhonchi, rales.. Heart: RRR without murmur, gallop, or rubs. No ectopy. Abdomen: Normal abdominal exam, Abdomen soft, non-tender. Bowel sounds normal. No masses, organomegaly Musculoskeletal: No joint swelling, deformity, or tenderness. Peripheral Pulses: Normal. Neurologic: Gait normal. Reflexes normal and symmetric. Sensation grossly intact.. Health Maintenance List Abdominal Aortic Aneurysm Screening Never done BP Controlled (<130/80) Never done Shingrix Vaccine(1 of 2) Never done RSV Vaccine(1 - 1-dose 60+ series) Never done Diabetes Screening due on 09/22/2019 Annual PCP Team Chronic Disease Visit due on 03/07/2020 Pneumococcal Vaccine: 65+(1 - PCV) Never done Lipid Screening due on 09/22/2021 Prostate Cancer Screening Discussion due on 10/20/2021 Advance Directive Discussion Never done Depression Assessment Never done Influenza Vaccine(1) due on 04/08/2024 Covid-19 Vaccine(1) due on 08/31/2024 Colorectal Cancer Screening due on 10/11/2024 DTaP,Tdap,Td Vaccine(4 - Td or Tdap) due on 09/21/2029 Hepatitis C Screening Completed ASSESSMENT/PLAN: 1. Hyperlipidemia, unspecified hyperlipidemia type - ICD9: 272.4, ICD10: E78.5 (primary diagnosis) - Control undetermined, due for labs - Continue current medications - Counseled on healthy diet and regular exercise - Discussed need for and benefit of weight loss. BMI 27.18 kg/(m^2) - LIPID PANEL, NONFASTING 2. Atrial fibrillation, unspecified type (HCC) - ICD9: 427.31, ICD10: I48.91 - CBC + DIFF - COMP METABOLIC PANEL 3. Screening for diabetes mellitus - ICD9: V77.1, ICD10: Z13.1 - HGB A1C 4. Screening for abdominal aortic aneurysm - ICD9: V81.2, ICD10: Z13.6 - US SCREENING FOR AAA 5. Screening for prostate cancer - ICD9: V76.44, ICD10: Z12.5 - Counseled on healthy diet and regular exercise - Discussed need for and benefit of weight loss. BMI 27.18 kg/(m^2) - Risks/benefits of prostate cancer screening discussed. screening PSA ordered - Ultrasound screening for AAA - Counseled on limiting alcohol intake to 2 drinks per day - Depression screening tool completed and reviewed with patient. Based on score and interview, patient is not at risk for depression and recommended no further intervention at this time. - Follow up for annual exam in one year - PSA/PROSTSPECAG SCRN Josie Bañuelos APRN.MANAGER BABY documented in this encounter [facility] 06-08-2023 Note HNO ID: [id number] Author: Nikolas Costa V, DO Service: ? Author Type: Physician Type: Progress Notes Filed: 06/08/2023 3:30 PM Note Text: Patient presents with: Right shoulder injury HPI: John is a 68 year old male right-hand dominant who presents for evaluation of shoulder pain for 10 days. The pain was the result of a fall. The location is along the lateral aspect of the shoulder, with radiation to the mid brachium. The pain is described as a sharp pain, intensity is 8/10 at its worse. The pain is intermittant in nature. The pain is relieved with rest, and aggravated with reaching, lifting, and overhead movements. The pain wakes the patient at night. Patient reports weakness and pain. MEDICATIONS: Current Outpatient Medications on File Prior to Visit Medication Sig rivaroxaban (XARELTO) 20 mg tablet Take 20 mg by mouth daily with dinner. metoprolol tartrate, short acting, (LOPRESSOR) 50 mg tablet Take 50 mg by mouth once daily. lisinopril-hydrochlorothiazide (PRINZIDE,ZESTORETIC) 10-12.5 mg per tablet Take 1 tablet by mouth once daily. MULTIVITAMIN ORAL Take by mouth. meloxicam (MOBIC) 15 mg tablet Take 1 tablet by mouth once daily. (Patient not taking: Reported on 12/13/2022) Aspirin 81 mg Tab Take 81 mg by mouth. (Patient not taking: No sig reported) No current facility-administered medications on file prior to visit. ALLERGIES: Patient has no known allergies. HISTORIES: PAST MEDICAL HISTORY Diagnosis Date Dysmetabolic syndrome impaired FBS GERD (gastroesophageal reflux disease) Hyperlipidemia Hypertension Illiterate Irregular heartbeat Joint pain hips, knees, back PAST SURGICAL HISTORY Procedure Laterality Date APPENDECTOMY ~1968 APPENDECTOMY HX COLONOSCOPY ~1968 rectal bleeding COLONOSCOPY FLX DX W/COLLJ SPEC WHEN PFRMD 01/15/2013 repeat due 2018 HERNIA REPAIR HX 1996 below umbilicus REVISE MEDIAN N/CARPAL TUNNEL SURG Right 10/28/2022 Right carpal tunnel release Social History Tobacco Use Smoking status: Former Packs/day: 1.00 Years: 9.00 Additional pack years: 0.00 Total pack years: 9.00 Types: Cigarettes Quit date: 10/10/1978 Years since quittin.6 Smokeless tobacco: Never Tobacco comments: in his teens x few years Substance Use Topics Alcohol use: Yes Alcohol/week: 22.5 standard drinks of alcohol Types: 9 Cans of Beer (12oz) per week Drug use: No PE: General: Well-appearing male in no acute distress. Vital Signs: There were no vitals taken for this visit. Skin: Intact to inspection and palpation. Psychiatric: Mood and affect appropriate. A and O x3. Musculoskeletal Exam: Gait and Station normal. Cervical spine: Normal ROM and normal to palpation. Bilateral upper extremities show equal motion of the elbows, and wrists. Right shoulder exam shows active forward flexion to 100, passively to 170; abduction to 100, IR to front pocket, ER adduction was 30. Positive for Hawkin's and Neer's tests Left shoulder exam shows active forward flexion to 170, passively to 170; abduction to 170, IR to T12, ER adduction was 50. Negative for Hawkin's and Neer's tests. Rotator cuff strength 3/5, positive drop arm Normal stability to testing. Normal tone. No pain to palpation of the AC joint. No pain to palpation of the bicipital groove. positive retracted biceps Neurologic Exam: Intact sensation and reflexes in both upper extremities. Vascular: 2+ radial pulses, both upper extremities. 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 No acute fracture is visualized. No dislocation. Mild acromioclavicular degenerative disease IMPRESSION: Right shoulder rotator cuff injury, possibly full thickness rotator cuff tear. RECOMMENDATIONS: I recommend a course of physical therapy- handout given for home PT for shoulder conditioning. If symptoms do not improve, surgery may be indicated. Requested Prescriptions Signed Prescriptions Disp Refills predniSONE (DELTASONE) 20 mg tablet 20 tablet 0 Sig: TAKE BY MOUTH ONE(1) TABLET THREE TIMES DAILY FOR 3 DAYS, THEN TAKE ONE(1) TABLET TWO(2) TIMES DAILY FOR 3 DAYS, THEN TAKE ONE(1) TABLET DAILY. Nikolas Costa DO [facility] 06-08-2023 Note HNO ID: [id number] Author: Arpita Garza Ma Service: ? Author Type: ? Type: Progress Notes Filed: 06/08/2023 3:30 PM Note Text: Patient presents with: Right shoulder injury AMB ROOMING INTAKE FLOWSHEET DATA Pain Pain Level: 8 Pain Location: Shoulder-Left Description: Sharp, Shooting Duration Amount of Time: 10 Duration Units: Days Frequency: Intermittent (Occurs when he reaches his arm above his head) Intervention/Comfort measure: Medication Patient states on 05/28 he was fell landing on is left shoulder when he went [place] go fishing and slipped on the loose gravel. Seen in on 06/01. X-rays and an US done. Taking Tylenol for the pain when needed. [facility] 06-08-2023 History of Presen t illness Narrative Patient presents with: Right shoulder injury HPI: John is a 68 year old male right-hand dominant who presents for evaluation of shoulder pain for 10 days. The pain was the result of a fall. The location is along the lateral aspect of the shoulder, with radiation to the mid brachium. The pain is described as a sharp pain, intensity is 8/10 at its worse. The pain is intermittant in nature. The pain is relieved with rest, and aggravated with reaching, lifting, and overhead movements. The pain wakes the patient at night. Patient reports weakness and pain. MEDICATIONS: Current Outpatient Medications on File Prior to Visit Medication Sig rivaroxaban (XARELTO) 20 mg tablet Take 20 mg by mouth daily with dinner. metoprolol tartrate, short acting, (LOPRESSOR) 50 mg tablet Take 50 mg by mouth once daily. lisinopril-hydrochlorothiazide (PRINZIDE,ZESTORETIC) 10-12.5 mg per tablet Take 1 tablet by mouth once daily. MULTIVITAMIN ORAL Take by mouth. meloxicam (MOBIC) 15 mg tablet Take 1 tablet by mouth once daily. (Patient not taking: Reported on 12/13/2022) Aspirin 81 mg Tab Take 81 mg by mouth. (Patient not taking: No sig reported) No current facility-administered medications on file prior to visit. ALLERGIES: Patient has no known allergies. HISTORIES: PAST MEDICAL HISTORY Diagnosis Date Dysmetabolic syndrome impaired FBS GERD (gastroesophageal reflux disease) Hyperlipidemia Hypertension Illiterate Irregular heartbeat Joint pain hips, knees, back PAST SURGICAL HISTORY Procedure Laterality Date APPENDECTOMY ~1968 APPENDECTOMY HX COLONOSCOPY ~1968 rectal bleeding COLONOSCOPY FLX DX W/COLLJ SPEC WHEN PFRMD 01/15/2013 repeat due 2018 HERNIA REPAIR HX 1996 below umbilicus REVISE MEDIAN N/CARPAL TUNNEL SURG Right 10/28/2022 Right carpal tunnel release Social History Tobacco Use Smoking status: Former Packs/day: 1.00 Years: 9.00 Additional pack years: 0.00 Total pack years: 9.00 Types: Cigarettes Quit date: 10/10/1978 Years since quittin.6 Smokeless tobacco: Never Tobacco comments: in his teens x few years Substance Use Topics Alcohol use: Yes Alcohol/week: 22.5 standard drinks of alcohol Types: 9 Cans of Beer (12oz) per week Drug use: No PE: General: Well-appearing male in no acute distress. Vital Signs: There were no vitals taken for this visit. Skin: Intact to inspection and palpation. Psychiatric: Mood and affect appropriate. A and O x3. Musculoskeletal Exam: Gait and Station normal. Cervical spine: Normal ROM and normal to palpation. Bilateral upper extremities show equal motion of the elbows, and wrists. Right shoulder exam shows active forward flexion to 100, passively to 170; abduction to 100, IR to front pocket, ER adduction was 30. Positive for Hawkin's and Neer's tests Left shoulder exam shows active forward flexion to 170, passively to 170; abduction to 170, IR to T12, ER adduction was 50. Negative for Hawkin's and Neer's tests. Rotator cuff strength 3/5, positive drop arm Normal stability to testing. Normal tone. No pain to palpation of the AC joint. No pain to palpation of the bicipital groove. positive retracted biceps Neurologic Exam: Intact sensation and reflexes in both upper extremities. Vascular: 2+ radial pulses, both upper extremities. 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 No acute fracture is visualized. No dislocation. Mild acromioclavicular degenerative disease IMPRESSION: Right shoulder rotator cuff injury, possibly full thickness rotator cuff tear. RECOMMENDATIONS: I recommend a course of physical therapy- handout given for home PT for shoulder conditioning. If symptoms do not improve, surgery may be indicated. Requested Prescriptions Signed Prescriptions Disp Refills predniSONE (DELTASONE) 20 mg tablet 20 tablet 0 Sig: TAKE BY MOUTH ONE(1) TABLET THREE TIMES DAILY FOR 3 DAYS, THEN TAKE ONE(1) TABLET TWO(2) TIMES DAILY FOR 3 DAYS, THEN TAKE ONE(1) TABLET DAILY. Nikolas Costa DO Patient presents with: Right shoulder injury AMB ROOMING INTAKE FLOWSHEET DATA Pain Pain Level: 8 Pain Location: Shoulder-Left Description: Sharp, Shooting Duration Amount of Time: 10 Duration Units: Days Frequency: Intermittent (Occurs when he reaches his arm above his head) Intervention/Comfort measure: Medication Patient states on 05/28 he was fell landing on is left shoulder when he went [place] to go fishing and slipped on the loose gravel. Seen in on 06/01. X-rays and an US done. Taking Tylenol for the pain when needed. documented in this encounter [facility] 06-01-2023 Note HNO ID: [id number] Author: Roverto Villareal PA-C Service: ? Author Type: Physician Guest Room Attendant Type: Progress Notes Filed: 06/01/2023 3:06 PM Note Text: This note was created using [place] [facility]. Subjective John Khan is a 68 year old male. HPI Patient presents with right shoulder pain over the past 4 days. He states he was going [place] when he fell landing on his right shoulder. 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 He was not seen for that injury. Denies any known rotator cuff injuries. Has had limited range of motion of his right arm since the incident. Denies numbness or weakness. No other injuries. Review of Systems Musculoskeletal: Right Shoulder pain All other systems reviewed and are negative. PAST MEDICAL HISTORY Diagnosis Date Dysmetabolic syndrome impaired FBS GERD (gastroesophageal reflux disease) Hyperlipidemia Hypertension Illiterate Irregular heartbeat Joint pain hips, knees, back Current Outpatient Medications Medication Sig Dispense Refill rivaroxaban (XARELTO) 20 mg tablet Take 20 mg by mouth daily with dinner. metoprolol tartrate, short acting, (LOPRESSOR) 50 mg tablet Take 50 mg by mouth once daily. lisinopril-hydrochlorothiazide (PRINZIDE,ZESTORETIC) 10-12.5 mg per tablet Take 1 tablet by mouth once daily. 90 tablet 3 MULTIVITAMIN ORAL Take by mouth. meloxicam (MOBIC) 15 mg tablet Take 1 tablet by mouth once daily. (Patient not taking: Reported on 12/13/2022) 14 tablet 0 Aspirin 81 mg Tab Take 81 mg by mouth. (Patient not taking: No sig reported) No current facility-administered medications for this visit. PAST SURGICAL HISTORY Procedure Laterality Date APPENDECTOMY ~1968 APPENDECTOMY HX COLONOSCOPY ~1968 rectal bleeding COLONOSCOPY FLX DX W/COLLJ SPEC WHEN PFRMD 01/15/2013 repeat due 2018 HERNIA REPAIR HX 1996 below umbilicus REVISE MEDIAN N/CARPAL TUNNEL SURG Right 10/28/2022 Right carpal tunnel release FAMILY HISTORY Problem Relation Age of Onset Stroke Mother Prostate Cancer Father Diabetes Father Ischemic Heart Disease Brother other (pneumonia) Brother Ischemic Heart Disease Brother 49 49 Colon Cancer Brother 49 49 Cancer Brother throat Social History Tobacco Use Smoking status: Former Packs/day: 1.00 Years: 9.00 Additional pack years: 0.00 Total pack years: 9.00 Types: Cigarettes Quit date: 10/10/1978 Years since quittin.6 Smokeless tobacco: Never Tobacco comments: in his teens x few years Substance Use Topics Alcohol use: Yes Alcohol/week: 22.5 standard drinks of alcohol Types: 9 Cans of Beer (12oz) per week Drug use: No Objective BP 136/75 Pulse 74 Temp 37.2 ?C (99 ?F) Resp 22 Wt 88.5 kg (195 lb) SpO2 98% BMI 25.73 kg/m? Physical Exam Vitals reviewed. Constitutional: Appearance: Normal appearance. HENT: Head: Normocephalic and atraumatic. Musculoskeletal: Comments: Patient has limited range of motion of the shoulder due to pain. Has chronic appearing deformity of the distal clavicle, no acute bruising or swelling. Radial pulse 2+. Normal hand grasp strength. Skin: General: Skin is warm and dry. Neurological: General: No focal deficit present. Mental Status: He is alert. Assessment and Plan ASSESSMENT/PLAN: 1. Injury of right shoulder, initial encounter - ICD9: 959.2, ICD10: S49.91XA X-ray of the right shoulder and clavicle show no acute fracture. 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 Suspicious for probable rotator cuff injury. Discussed rest, ice, Tylenol. We will have him have follow-up with orthopedics. Patient agreeable with plan. - XR SHOULDER GENERAL 3V OR MORE AP/TRUE AP/OTHER RIGHT - XR CLAVICLE 2V RIGHT Roverto Villareal PA-C [facility] 06-01-2023 Note HNO ID: [id number] Author: Roverto Villareal PA-C Service: ? Author Type: Physician Guest Room Attendant Type: Progress Notes Filed: 06/01/2023 3:06 PM Note Text: This note was created using [facility]. Subjective John Khan is a 68 year old male. HPI Review of Systems Objective BP 136/75 Pulse 74 Temp 37.2 ?C (99 ?F) Resp 22 Wt 88.5 kg (195 lb) SpO2 98% BMI 25.73 kg/m? Physical Exam Assessment and Plan [facility] 06-01-2023 Note HNO ID: [id number] Author: Brook Navas RT(R) Service: ? Author Type: Milk P[employer] Type: Progress Notes Filed: 06/01/2023 2:32 PM Note Text: Radiology Service Progress Note PATIENT NAME: John Khan DATE OF SERVICE: June 01, 2023 TIME: 2:11 PM PATIENT IDENTITY VERIFICATION COMPLETED USING TWO (2) IDENTIFIERS: Name and Date of confirmed by patient verbally. FALL SCREENING: Has the patient had 2 falls in the last year or 1 fall with injury or currently using an Ambulatory Assistive Device (Walker, Cane, Wheelchair, Crutches, etc.)? No PATIENT GENDER DATA: Male PATIENT RELEVANT IMPLANT DATA REVIEWED: Yes RADIOLOGY DEPARTMENT: General X-ray: Exam(s) Completed: Upper Extremity X-Ray(s): Shoulder, AP / TRUE AP right and Clavicle, right Y-view PERIPHERAL IV DATA: Not applicable SIGNED BY: RT Daria(R) June 01, 2023 2:11 PM [facility] 06-01-2023 History of Presen t illness Narrative This note was created using [employer]. Subjective John Khan is a 68 year old male. HPI Patient presents with right shoulder pain over the past 4 days. He states he was going [place] when he fell landing on his right shoulder. 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 He was not seen for that injury. Denies any known rotator cuff injuries. Has had limited range of motion of his right arm since the incident. Denies numbness or weakness. No other injuries. Review of Systems Musculoskeletal: Right Shoulder pain All other systems reviewed and are negative. PAST MEDICAL HISTORY Diagnosis Date Dysmetabolic syndrome impaired FBS GERD (gastroesophageal reflux disease) Hyperlipidemia Hypertension Illiterate Irregular heartbeat Joint pain hips, knees, back Current Outpatient Medications Medication Sig Dispense Refill rivaroxaban (XARELTO) 20 mg tablet Take 20 mg by mouth daily with dinner. metoprolol tartrate, short acting, (LOPRESSOR) 50 mg tablet Take 50 mg by mouth once daily. lisinopril-hydrochlorothiazide (PRINZIDE,ZESTORETIC) 10-12.5 mg per tablet Take 1 tablet by mouth once daily. 90 tablet 3 MULTIVITAMIN ORAL Take by mouth. meloxicam (MOBIC) 15 mg tablet Take 1 tablet by mouth once daily. (Patient not taking: Reported on 12/13/2022) 14 tablet 0 Aspirin 81 mg Tab Take 81 mg by mouth. (Patient not taking: No sig reported) No current facility-administered medications for this visit. PAST SURGICAL HISTORY Procedure Laterality Date APPENDECTOMY ~1968 APPENDECTOMY HX COLONOSCOPY ~1968 rectal bleeding COLONOSCOPY FLX DX W/COLLJ SPEC WHEN PFRMD 01/15/2013 repeat due 2018 HERNIA REPAIR HX 1996 below umbilicus REVISE MEDIAN N/CARPAL TUNNEL SURG Right 10/28/2022 Right carpal tunnel release FAMILY HISTORY Problem Relation Age of Onset Stroke Mother Prostate Cancer Father Diabetes Father Ischemic Heart Disease Brother other (pneumonia) Brother Ischemic Heart Disease Brother 49 49 Colon Cancer Brother 49 49 Cancer Brother throat Social History Tobacco Use Smoking status: Former Packs/day: 1.00 Years: 9.00 Additional pack years: 0.00 Total pack years: 9.00 Types: Cigarettes Quit date: 10/10/1978 Years since quittin.6 Smokeless tobacco: Never Tobacco comments: in his teens x few years Substance Use Topics Alcohol use: Yes Alcohol/week: 22.5 standard drinks of alcohol Types: 9 Cans of Beer (12oz) per week Drug use: No Objective BP 136/75 Pulse 74 Temp 37.2 C (99 F) Resp 22 Wt 88.5 kg (195 lb) SpO2 98% BMI 25.73 kg/m Physical Exam Vitals reviewed. Constitutional: Appearance: Normal appearance. HENT: Head: Normocephalic and atraumatic. Musculoskeletal: Comments: Patient has limited range of motion of the shoulder due to pain. Has chronic appearing deformity of the distal clavicle, no acute bruising or swelling. Radial pulse 2+. Normal hand grasp strength. Skin: General: Skin is warm and dry. Neurological: General: No focal deficit present. Mental Status: He is alert. Assessment and Plan ASSESSMENT/PLAN: 1. Injury of right shoulder, initial encounter - ICD9: 959.2, ICD10: S49.91XA X-ray of the right shoulder and clavicle show no acute fracture. 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 Suspicious for probable rotator cuff injury. Discussed rest, ice, Tylenol. We will have him have follow-up with orthopedics. Patient agreeable with plan. - XR SHOULDER GENERAL 3V OR MORE AP/TRUE AP/OTHER RIGHT - XR CLAVICLE 2V RIGHT Roverto Villareal PA-C This note was created using [facility]. Subjective John Khan is a 68 year old male. HPI Review of Systems Objective BP 136/75 Pulse 74 Temp 37.2 C (99 F) Resp 22 Wt 88.5 kg (195 lb) SpO2 98% BMI 25.73 kg/m Physical Exam Assessment and Plan documented in this encounter [facility] 12-13-2022 Note HNO ID: [id number] Author: Patricia Goodman MD Service: ? Author Type: Physician Type: Progress Notes Filed: 12/13/2022 12:37 PM Note Text: Patient presents with: Right Wrist - Post Op 6 weeks 4 days post op right CTR AMB ROOMING INTAKE FLOWSHEET DATA Risk Screening Do you have concerns about personal safety or safety in the home?: No Pain Pain Level: 2 Pain Location: Wrist-Right Description: Aching Frequency: Intermittent Intervention/Comfort measure: Medication Comments: tylenol Pt states he feels his right wrist is still swollen from surgery. He is doing quite well. He feels improvement in the hand significantly. He has been planning some car related work jobs. He can follow-up on an as-needed basis. Patricia Goodman MD [facility] 12-13-2022 History of Presen t illness Narrative Patient presents with: Right Wrist - Post Op 6 weeks 4 days post op right CTR AMB ROOMING INTAKE FLOWSHEET DATA Risk Screening Do you have concerns about personal safety or safety in the home?: No Pain Pain Level: 2 Pain Location: Wrist-Right Description: Aching Frequency: Intermittent Intervention/Comfort measure: Medication Comments: tylenol Pt states he feels his right wrist is still swollen from surgery. He is doing quite well. He feels improvement in the hand significantly. He has been planning some car related work jobs. He can follow-up on an as-needed basis. Patricia Goodman MD documented in this encounter [facility] 11-08-2022 Note HNO ID: [id number] Author: Arpita Garza Ma Service: ? Author Type: ? Type: Progress Notes Filed: 11/29/2022 9:02 AM Note Text: Per , patient presents for suture removal. The wound is well healed without signs of infection. The sutures are removed. Patient given care after suture removal and verbalized understanding. PT ASSESSMENT - CASTING ROOM John presents for Application of brace. Applied Courtney and Gel wrist brace to Right hand. Patient tolerated well. Patient has been instructed in Care and proper application of brace. Patient verbalized understanding. Arpita Garza Ma [facility] 11-08-2022 Note HNO ID: [id number] Author: Patricia Goodman MD Service: ? Author Type: Physician Type: Progress Notes Filed: 11/29/2022 9:02 AM Note Text: Patient presents with: Right Wrist - Post Op: Suture removal right hand AMB ROOMING INTAKE FLOWSHEET DATA Post op right hand CTR, no pain, minor swelling, Suture removal. Tuesday pool tournament can patient use his hand? DAVID Monroy MD Department of Orthopaedics [facility] [address] [facility] [address] Dept: [phone] Dept October CHIEF COMPLAINT: Post Op of the Right Wrist (Suture removal right hand ). HPI Patient is about 10 or 11 days after carpal tunnel. Doing quite well. Some symptoms already improved. No issues with the incision. ASSESSMENT: G56.01 Carpal tunnel syndrome, right (primary encounter diagnosis) SUMMARY/PLAN: Sutures out today. Exam: Surgical site looks excellent without any concerns. No redness or drainage. Good range of motion. Neurovascular exam intact. Supporting Information Below: Medications: Current Outpatient Medications Medication Sig meloxicam (MOBIC) 15 mg tablet Take 1 tablet by mouth once daily. rivaroxaban (XARELTO) 20 mg tablet Take 20 mg by mouth daily with dinner. metoprolol tartrate, short acting, (LOPRESSOR) 50 mg tablet Take 50 mg by mouth once daily. lisinopril-hydrochlorothiazide (PRINZIDE,ZESTORETIC) 10-12.5 mg per tablet Take 1 tablet by mouth once daily. MULTIVITAMIN ORAL Take by mouth. Aspirin 81 mg Tab Take 81 mg by mouth. (Patient not taking: No sig reported) No current facility-administered medications for this visit. Allergies: Patient has no known allergies. Patricia Goodman MD [facility] 11-08-2022 History of Presen t illness Narrative Per , patient presents for suture removal. The wound is well healed without signs of infection. The sutures are removed. Patient given care after suture removal and verbalized understanding. PT ASSESSMENT - CASTING ROOM John presents for Application of brace. Applied Courtney and Gel wrist brace to Right hand. Patient tolerated well. Patient has been instructed in Care and proper application of brace. Patient verbalized understanding. Arpita Garza Ma Patient presents with: Right Wrist - Post Op: Suture removal right hand AMB ROOMING INTAKE FLOWSHEET DATA Post op right hand CTR, no pain, minor swelling, Suture removal. Tuesday pool tournament can patient use his hand? DAVID Monroy MD Department of Orthopaedics Orth[facility] [address] [facility] [address] Dept: [phone] Dept October CHIEF COMPLAINT: Post Op of the Right Wrist (Suture removal right hand ). HPI Patient is about 10 or 11 days after carpal tunnel. Doing quite well. Some symptoms already improved. No issues with the incision. ASSESSMENT: G56.01 Carpal tunnel syndrome, right (primary encounter diagnosis) SUMMARY/PLAN: Sutures out today. Exam: Surgical site looks excellent without any concerns. No redness or drainage. Good range of motion. Neurovascular exam intact. Supporting Information Below: Medications: Current Outpatient Medications Medication Sig meloxicam (MOBIC) 15 mg tablet Take 1 tablet by mouth once daily. rivaroxaban (XARELTO) 20 mg tablet Take 20 mg by mouth daily with dinner. metoprolol tartrate, short acting, (LOPRESSOR) 50 mg tablet Take 50 mg by mouth once daily. lisinopril-hydrochlorothiazide (PRINZIDE,ZESTORETIC) 10-12.5 mg per tablet Take 1 tablet by mouth once daily. MULTIVITAMIN ORAL Take by mouth. Aspirin 81 mg Tab Take 81 mg by mouth. (Patient not taking: No sig reported) No current facility-administered medications for this visit. Allergies: Patient has no known allergies. Patricia Goodman MD documented in this encounter [facility] 09-20-2022 Miscellaneous Notes Post op appointments have been scheduled and mailed to patient. Surgery has been scheduled as requested. Surgical request completed for right CTR under local anesthesia at [facility] on 09/23/2022. documented in this encounter [facility] 09-20-2022 Note HNO ID: [id number] Author: Patricia Goodman MD Service: ? Author Type: Physician Type: Progress Notes Filed: 09/20/2022 9:49 AM Note Text: Patricia Goodman MD [facility] Orthopaedics [facility] [address] [facility] [address] Dept: [phone] Dept September 20, 2022 CHIEF COMPLAINT: Established Patient and Pain of the Right Hand HPI Patient wants to schedule carpal tunnel surgery on R hand. It has been bothersome for the past few years and is getting worse. C/o numbness and pain, worse at night. AMB ROOMING INTAKE FLOWSHEET DATA Pain Pain Level: 7 Pain Location: Hand-Right Description: Sharp, Numbness Duration Amount of Time: 4 Duration Units: Years Frequency: Intermittent Intervention/Comfort measure: Reposition, Relaxation Patient presents with: Right Hand - Established Patient, Pain ASSESSMENT: G56.01 Carpal tunnel syndrome of right wrist (primary encounter diagnosis) PLAN: Patient is interested in his right carpal tunnel release. We will also provide him with a disposable suture removal kit as he has a very superficial and well appearing laceration of the wrist that he had closed at the urgent care/ER for dog bite. No signs of infection. Mr. John Khan was advised as to contrast therapies and/or to take analgesics/anti-inflammatories as needed and all contraindications were reviewed. OBJECTIVE: Mr. John Khan is a pleasant 67 year old in no apparent distress. Gen:There were no vitals taken for this visit. nl development, non obese, no deformities ENT: Normocephalic, normal hearing, moist mucosa CV: Pulses:Radial= 2+ and symmetric, capillary refill < 2 secs, no peripheral edema/varicosities Skin: no rash, bruising or lesions. Good turgor. Psych: cooperative and appropriate, alert and oriented x 3, good mood and affect. Musculoskeletal: Cervical spine has full range of motion and no tenderness to palpation. Shoulders and elbows have full range of motion. Negative Tinel's over the cubital tunnel, no subluxation of ulnar nerve at the elbow with flexion. No Tinel's over Guyon's canal. Inspection reveals no thenar atrophy. Diminished sensation to light touch in the radial 3 digits. Sensation slightly diminished in the ulnar 2 digits with out intrinsic atrophy/weakness. Positive Tinel's at the wrist, positive carpal tunnel compression testing on the right. No locking or catching of the digits. No tenderness to palpation or masses noted in the forearm or hand. Few small healing lacerations and then bit of a larger one at the radial side of the wrist with 2 intact sutures. No signs of infection. Imaging: Severe CTS from testing a few years ago. Supporting Subjective Information Below: Past Surgical History: PAST SURGICAL HISTORY Procedure Laterality Date APPENDECTOMY ~1968 COLONOSCOPY ~1968 rectal bleeding COLONOSCOPY FLX DX W/COLLJ SPEC WHEN PFRMD 01/15/2013 repeat due 2018 HERNIA REPAIR HX 1996 below umbilicus Medications: Current Outpatient Medications Medication Sig rivaroxaban (XARELTO) 20 mg tablet Take 20 mg by mouth daily with dinner. metoprolol tartrate, short acting, (LOPRESSOR) 50 mg tablet Take 50 mg by mouth once daily. lisinopril-hydrochlorothiazide (PRINZIDE,ZESTORETIC) 10-12.5 mg per tablet Take 1 tablet by mouth once daily. MULTIVITAMIN ORAL Take by mouth. meloxicam (MOBIC) 15 mg tablet Take 1 tablet by mouth once daily. (Patient not taking: Reported on 09/20/2022) Aspirin 81 mg Tab Take 81 mg by mouth. (Patient not taking: Reported on 09/20/2022) No current facility-administered medications for this visit. Allergies: Patient has no known allergies. ROS: General (negative for fatigue, malaise, weight loss/gain) HEENT (negative for headache, earache, recent vision changes, sinus pain, sore throat) Respiratory (no recent shortness of breath, hemoptysis) CV (negative for chest tightness, palpitations) Musculoskeletal (see HPI) Psych (no depression, anxiety) Patricia Goodman MD [facility] 09-20-2022 History of Presen t illness Narrative Patricia Goodman MD Department of Orthopaedics Orthopaed[facility] [address] [address] Dept: [phone] Dept September 20, 2022 CHIEF COMPLAINT: Established Patient and Pain of the Right Hand HPI Patient wants to schedule carpal tunnel surgery on R hand. It has been bothersome for the past few years and is getting worse. C/o numbness and pain, worse at night. AMB ROOMING INTAKE FLOWSHEET DATA Pain Pain Level: 7 Pain Location: Hand-Right Description: Sharp, Numbness Duration Amount of Time: 4 Duration Units: Years Frequency: Intermittent Intervention/Comfort measure: Reposition, Relaxation Patient presents with: Right Hand - Established Patient, Pain ASSESSMENT: G56.01 Carpal tunnel syndrome of right wrist (primary encounter diagnosis) PLAN: Patient is interested in his right carpal tunnel release. We will also provide him with a disposable suture removal kit as he has a very superficial and well appearing laceration of the wrist that he had closed at the urgent care/ER for dog bite. No signs of infection. Mr. John Khan was advised as to contrast therapies and/or to take analgesics/anti-inflammatories as needed and all contraindications were reviewed. OBJECTIVE: Mr. John Khan is a pleasant 67 year old in no apparent distress. Gen:There were no vitals taken for this visit. nl development, non obese, no deformities ENT: Normocephalic, normal hearing, moist mucosa CV: Pulses:Radial= 2+ and symmetric, capillary refill < 2 secs, no peripheral edema/varicosities Skin: no rash, bruising or lesions. Good turgor. Psych: cooperative and appropriate, alert and oriented x 3, good mood and affect. Musculoskeletal: Cervical spine has full range of motion and no tenderness to palpation. Shoulders and elbows have full range of motion. Negative Tinel's over the cubital tunnel, no subluxation of ulnar nerve at the elbow with flexion. No Tinel's over Guyon's canal. Inspection reveals no thenar atrophy. Diminished sensation to light touch in the radial 3 digits. Sensation slightly diminished in the ulnar 2 digits with out intrinsic atrophy/weakness. Positive Tinel's at the wrist, positive carpal tunnel compression testing on the right. No locking or catching of the digits. No tenderness to palpation or masses noted in the forearm or hand. Few small healing lacerations and then bit of a larger one at the radial side of the wrist with 2 intact sutures. No signs of infection. Imaging: Severe CTS from testing a few years ago. Supporting Subjective Information Below: Past Surgical History: PAST SURGICAL HISTORY Procedure Laterality Date APPENDECTOMY ~1968 COLONOSCOPY ~1968 rectal bleeding COLONOSCOPY FLX DX W/COLLJ SPEC WHEN PFRMD 01/15/2013 repeat due 2018 HERNIA REPAIR HX 1996 below umbilicus Medications: Current Outpatient Medications Medication Sig rivaroxaban (XARELTO) 20 mg tablet Take 20 mg by mouth daily with dinner. metoprolol tartrate, short acting, (LOPRESSOR) 50 mg tablet Take 50 mg by mouth once daily. lisinopril-hydrochlorothiazide (PRINZIDE,ZESTORETIC) 10-12.5 mg per tablet Take 1 tablet by mouth once daily. MULTIVITAMIN ORAL Take by mouth. meloxicam (MOBIC) 15 mg tablet Take 1 tablet by mouth once daily. (Patient not taking: Reported on 09/20/2022) Aspirin 81 mg Tab Take 81 mg by mouth. (Patient not taking: Reported on 09/20/2022) No current facility-administered medications for this visit. Allergies: Patient has no known allergies. ROS: General (negative for fatigue, malaise, weight loss/gain) HEENT (negative for headache, earache, recent vision changes, sinus pain, sore throat) Respiratory (no recent shortness of breath, hemoptysis) CV (negative for chest tightness, palpitations) Musculoskeletal (see HPI) Psych (no depression, anxiety) Patricia Goodman MD documented in this encounter [facility] 09-16-2022 Note HNO ID: [id number] Author: RT Daria(R) Service: ? Author Type: Milk Pasteurizer Type: Progress Notes Filed: 09/16/2022 1:30 PM Note Text: Radiology Service Progress Note PATIENT NAME: John Khan DATE OF SERVICE: September 16, 2022 TIME: 1:19 PM PATIENT IDENTITY VERIFICATION COMPLETED USING TWO (2) IDENTIFIERS: Name and Date of confirmed by patient verbally. FALL SCREENING: Has the patient had 2 falls in the last year or 1 fall with injury or currently using an Ambulatory Assistive Device (Walker, Cane, Wheelchair, Crutches, etc.)? No PATIENT GENDER DATA: Male PATIENT RELEVANT IMPLANT DATA REVIEWED: Yes RADIOLOGY DEPARTMENT: General X-ray: Exam(s) Completed: Upper Extremity X-Ray(s): Hand, right PERIPHERAL IV DATA: Not applicable SIGNED BY: RT Daria(R) September 16, 2022 1:19 PM [facility] 04-25-2019 Miscellaneous Notes Agree with above. Thanks, Mitzi Nunez, CAILIN.MANAGER BABY Pt friend, Irish calls, stating pt was given Augmentin 04/23 for bacterial gastroenteritis and states he would like something different due to the medication upsetting his stomach. States diarrhea and stomach cramping worse since starting medication. Asking if pt could also have something to cool his stomach . Advised would need to be seen for medication changes. Advised UC or OA, hours given. Pt friend verbalizes understanding. Irish also asking about diet for diarrhea. Advised start with liquids such as water or Gatorade. Once tolerated, advance to a bland diet. Irish verbalizes understanding documented in this encounter [facility] documented as of this encounter (statuses as of 02/19/2021) [facility] History of Past illness Narrative* Problem Noted Date Resolved Date HTN (hypertension) 11/13/2012 09/22/2016 documented as of this encounter (statuses as of 09/16/2022) [facility] History of Past illness Narrative* Problem Noted Date Resolved Date HTN (hypertension) 11/13/2012 09/22/2016 documented as of this encounter (statuses as of 09/20/2022) [facility] History of Past illness Narrative* Problem Noted Date Resolved Date HTN (hypertension) 11/13/2012 09/22/2016 documented as of this encounter (statuses as of 09/20/2022) [facility] History of Past illness Narrative* Problem Noted Date Resolved Date HTN (hypertension) 11/13/2012 09/22/2016 documented as of this encounter (statuses as of 11/29/2022) [facility] History of Past illness Narrative* Problem Noted Date Resolved Date HTN (hypertension) 11/13/2012 09/22/2016 documented as of this encounter (statuses as of 12/13/2022) [facility] History of Past illness Narrative* Problem Noted Date Diagnosed Date Resolved Date HTN (hypertension) 11/13/2012 6 documented as of this encounter (statuses as of 06/02/2023) [facility] History of Past illness Narrative* Problem Noted Date Diagnosed Date Resolved Date HTN (hypertension) 11/13/2012 6 documented as of this encounter (statuses as of 06/09/2023) [facility] History of Past illness Narrative* Problem Noted Date Diagnosed Date Resolved Date HTN (hypertension) 11/13/2012 6 documented as of this encounter (statuses as of 08/31/2023) [facility] History of Past illness Narrative* Problem Noted Date Diagnosed Date Resolved Date HTN (hypertension) 11/13/2012 6 documented as of this encounter (statuses as of 09/12/2023) [facility] History of Past illness Narrative* Problem Noted Date Diagnosed Date Resolved Date HTN (hypertension) 11/13/2012 6 documented as of this encounter (statuses as of 09/13/2023) [facility] Diagnosis Right hand pain- Primary Pain in limb [facility] Diagnosis Carpal tunnel syndrome of right wrist- Primary Carpal tunnel syndrome Carpal tunnel syndrome, right Carpal tunnel syndrome [facility] Diagnosis Carpal tunnel syndrome, right- Primary Carpal tunnel syndrome Carpal tunnel syndrome, right Carpal tunnel syndrome [facility] Diagnosis Carpal tunnel syndrome, right- Primary Carpal tunnel syndrome [facility] Carpal tunnel syndrome, right- Primary Carpal tunnel syndrome [facility] Diagnosis Injury of right shoulder, initial encounter- Primary [facility] Diagnosis Rotator cuff disorder, right- Primary [facility] Hyperlipidemia, unspecified hyperlipidemia type- Primary Atrial fibrillation, unspecified type (HCC) Screening for diabetes mellitus Screening for abdominal aortic aneurysm Screening for other and unspecified cardiovascular conditions Screening for prostate cancer Special screening for malignant neoplasm of prostate Wellness examination documented in this encounter [facility] note* Diagnosis Elevated PSA- Primary Elevated prostate specific antigen (PSA) documented in this encounter [facility] note* Diagnosis Screening for abdominal aortic aneurysm Screening for other and unspecified cardiovascular conditions documented in this encounter [facility] for referral (narrative)* Diagnostic Procedure Only (Routine) - Pending Review Specialty Diagnoses / Procedures Referred By Contac t Referred To Contact XR IMAGING Diagnoses Right hand pain Procedures XR HAND GENERAL 3V PA/LAT/OBL RIGHT RADEX HAND MINIMUM 3 VIEWS Patricia Goodman MD [address] [place] [address] Xr Imaging Referral ID Status Reason Start Date Expiration Date Visits Requested Visits Authorized [id number] Pending Review Auto-Generat ed Referral 09/16/2022 10/16/2023 1 1 [facility] for referral (narrative)* Diagnostic Procedure Only (Urgent) - Closed Specialty Diagnoses / Procedures Referred By Contac t Referred To Contact XR IMAGING Diagnoses Injury of right shoulder, initial encounter Procedures XR CLAVICLE 2V RIGHT RADEX CLAVICLE COMPLETE Roverto Villareal PA-C [address] [place] [address] [place] [address] Referral ID Status Reason Start Date Expiration Date V isits Requested Visits Authorized [id number] Closed Auto-Generate d Referral 06/01/2023 06/30/2024 1 1 * Diagnostic Procedure Only (Urgent) - Closed Specialty Diagnoses / Procedures Referred By Contac t Referred To Contact XR IMAGING Diagnoses Injury of right shoulder, initial encounter Procedures XR SHOULDER GENERAL 3V OR MORE AP/TRUE AP/OTHER RIGHT RADEX SHOULDER COMPLETE MINIMUM 2 VIEWS Roverto Villareal PA-C [address] [place] [address] [place] [address] Referral ID Status Reason Start Date Expiration Date V isits Requested Visits Authorized [id number] Closed Auto-Generate d Referral 06/01/2023 06/30/2024 1 1 [facility] for referral (narrative)* Diagnostic Procedure Only (Routine) - Authorized Specialty Diagnoses / Procedures Referred By Contac t Referred To Contact US IMAGING Diagnoses Screening for abdominal aortic aneurysm Procedures US SCREENING FOR AAA (2017) US ABDOMINAL AORTA REAL TIME SCREEN STUDY AAA Josie Bañuelos APRN.MANAGER BABY [address] [place] [address] [place] [address] Referral ID Status Reason Start Date Expiration Date Visits Requested Visits Authorized [id number] Authorized Auto-Generat ed Referral 09/29/2024 1 1 [facility] for referral (narrative)* Diagnostic Procedure Only (Routine) - Closed Specialty Diagnoses / Procedures Referred By Contac t Referred To Contact US IMAGING Diagnoses Screening for abdominal aortic aneurysm Procedures US SCREENING FOR AAA (2017) US ABDOMINAL AORTA REAL TIME SCREEN STUDY AAA Josie Bañuelos APRN.MANAGER BABY [address] [place] [address] [place] [address] Referral ID Status Reason Start Date Expiration Date V isits Requested Visits Authorized [id number] Closed Auto-Generate d Referral 08/31/2023 09/29/2024 1 1 [facility] Advance Directives No Advanced Directives Records FoundDocuments on File Type Date Recorded Patient Mortarman Expl anation Advance Directive(s) 06/28/2019 12:43 PM Advance Directive(s) 06/13/2019 3:46 PM Reason for Referral Specialty Diagnoses / Procedures Referred By Contac t Referred To Contact Urology Diagnoses Elevated PSA Procedures CONSULT TO UROLOGY OFFICE/OUTPATIENT NEW HIGH MDM 60-74 MINUTES Josie Bañuelos APRN.MANAGER BABY [address] [place] [address] Referral ID Status Reason Start Date Expiration Date Visits Requested Visits Authorized [id number] Authorized PCP Requested Referral 3 09/07/2024 1 1 Summary Purpose Family History No Family History Records Found Additional Source Comments Source Comments (unrecognize d section and content) In the event this informatio n is protected by the Federal Confidentiality of Alcohol and Drug Abuse Patient Records regulations: The Federal rules restrict any use of the information to criminally investigate or prosecute any alcohol or drug abuse patient.[facility] the event this information is protected by the Federal Confidentiality of Alcohol and Drug Abuse Patient Records regulations: The Federal rules restrict any use of the information to criminally investigate or prosecute any alcohol or drug abuse patient.[facility] the event this information is protected by the Federal Confidentiality of Alcohol and Drug Abuse Patient Records regulations: The Federal rules restrict any use of the information to criminally investigate or prosecute any alcohol or drug abuse patient.[facility] the event this information is protected by the Federal Confidentiality of Alcohol and Drug Abuse Patient Records regulations: The Federal rules restrict any use of the information to criminally investigate or prosecute any alcohol or drug abuse patient.[facility] the event this information is protected by the Federal Confidentiality of Alcohol and Drug Abuse Patient Records regulations: The Federal rules restrict any use of the information to criminally investigate or prosecute any alcohol or drug abuse patient.[facility] the event this information is protected by the Federal Confidentiality of Alcohol and Drug Abuse Patient Records regulations: The Federal rules restrict any use of the information to criminally investigate or prosecute any alcohol or drug abuse patient.[facility] the event this information is protected by the Federal Confidentiality of Alcohol and Drug Abuse Patient Records regulations: The Federal rules restrict any use of the information to criminally investigate or prosecute any alcohol or drug abuse patient.[facility] the event this information is protected by the Federal Confidentiality of Alcohol and Drug Abuse Patient Records regulations: The Federal rules restrict any use of the information to criminally investigate or prosecute any alcohol or drug abuse patient.[facility] the event this information is protected by the Federal Confidentiality of Alcohol and Drug Abuse Patient Records regulations: The Federal rules restrict any use of the information to criminally investigate or prosecute any alcohol or drug abuse patient.[facility] the event this information is protected by the Federal Confidentiality of Alcohol and Drug Abuse Patient Records regulations: The Federal rules restrict any use of the information to criminally investigate or prosecute any alcohol or drug abuse patient.[facility] the event this information is protected by the Federal Confidentiality of Alcohol and Drug Abuse Patient Records regulations: The Federal rules restrict any use of the information to criminally investigate or prosecute any alcohol or drug abuse patient.[facility] Reason for Visit (unrecogniz ed section and content) Reason Comments Established Patient Pain Reason Comments Schedule Surgery Reason Comments Post Op Suture removal right hand Reason Comments Post Op Reason Comments Trauma Right shoulder injur y x 4 days Reason Comments Right shoulder injury Reason Comments Establish Care Reason Comments Results Reason Comments Radiology US Specialty Diagnoses / Procedures Referred By Contac t Referred To Contact US IMAGING Diagnoses Screening for abdominal aortic aneurysm Procedures US SCREENING FOR AAA (2017) US ABDOMINAL AORTA REAL TIME SCREEN STUDY AAA Josie Bañuelos APRN.LORI [address] [place] [id number] [place] [address] Referral ID Status Reason Start Date Expiration Date V isits Requested Visits Authorized [id number] Closed Auto-Generate d Referral 08/31/2023 09/29/2024 1 1 Care Teams (unrecognized sec tion and content) Channel Executive Relationship Specialty Start Date End Date Josie Bañuelos APRN.MANAGER BABY [address] [place] [address] [id number] PCP - General Family Medicine 08/31/23 Channel Executive Relationship Specialty Start Date End Date Josie Bañuelos APRN.MANAGER BABY [address] [place] [address] [phone] PCP - General Family Medicine 08/31/23 (unrecognized sect ion and content) No Status Records Found INFORMATION SOURCE (unrecogn ized section and content) FOR RECORDS PERTAINING TO PATIENTS WHO ARE OR HAVE BEEN ENROLLED IN A CHEMICAL DEPENDENCY/SUBSTANCEABUSE PROGRAM, SOME INFORMATION MAY BE OMITTED. This clinical summary was aggregated from multiple sources. Caution should be exercised in using it in the provision of clinical care. This summary normalizes information from multiple sources, and as a consequence, information in this document may materially change the coding, format and clinical context of patient data. In addition, data may be omitted in some cases. CLINICAL DECISIONS SHOULD BE BASED ON THE PRIMARY CLINICAL RECORDS. [employer] provides no warranty or guarantee of the accuracy or completeness of information in this document.
== END 2023-11-24 14:15 | disposition home or self-care (01) ==
PROVIDERS: Emergency Provider Emergency Medicine; Visit Provider Emergency Medicine
DX: S20.212A Contusion of left front wall of thorax, initial encounter (principal); I48.11 Longstanding persistent atrial fibrillation; X58.XXXA Exposure to other specified factors, initial encounter; I10 Essential (primary) hypertension; Z79.01 Long term (current) use of anticoagulants; Z79.899 Other long term (current) drug therapy; Z87.891 Personal history of nicotine dependence
CPT/HCPCS: 71101; 99282

== ENCOUNTER → 2024-05-07 | Outpatient (CLI) | payer MEDICARE, MEDICAID, SELFPAY ==
--- NOTE | 2024-05-07 10:13 | ECHOD_ITS ---
Reason For Study: Chronic A. fib Procedure This was a 2D Doppler, Color Flow transthoracic echocardiogram. Exam performed in department. Left Ventricle Normal LV size. Left ventricular systolic function is normal. The left ventricular ejection fraction is 70 %. No regional wall motion abnormalities noted. Right Ventricle Normal RV size. Normal systolic function. Atria The left atrium is moderately enlarged. Normal right atrium. Mitral Valve Normal mitral valve. Mild-Moderate (1-2+) eccentric mitral valve insufficiency. Tricuspid Valve Normal tricuspid valve. Mild (1+) tricuspid valve insufficiency. Pulmonary artery systolic pressure is 34 mmHg. Aortic Valve Trisinus/trileaflet aortic valve. Pulmonic Valve Normal pulmonic valve. Great Vessels Normal aortic root. The pulmonary artery is normal size. Inferior vena cava collapse with respiration. Pericardium/Pleural No pericardial effusion. MMode/2D Measurements & Calculations LVIDd: 5.2 cm IVSd: 0.96 cm Ao root diam: 3.6 cm LVIDs: 2.8 cm LVPWd: 1.2 cm RVDd: 3.9 cm FS: 46.4 % LAV(MOD-bp): 125.9 ml LVAd ap4: 29.0 cm2 LVAd ap2: 27.0 cm2 LAV(MOD-bp) Indexed: 59.1 ml/m2 LVLd ap4: 8.0 cm LVLd ap2: 7.6 cm LAV(MOD-sp2): 100.7 ml EDV(MOD-sp4): 86.9 ml EDV(MOD-sp2): 78.4 ml LAV(MOD-sp4): 131.3 ml EDV(sp4-el): 88.9 ml EDV(sp2-el): 81.6 ml LVAs ap4: 14.2 cm2 LVAs ap2: 14.5 cm2 LVLs ap4: 6.4 cm LVLs ap2: 6.8 cm ESV(MOD-sp4): 26.9 ml ESV(MOD-sp2): 27.3 ml ESV(sp4-el): 26.7 ml ESV(sp2-el): 26.4 ml EF(MOD-sp4): 69.1 % EF(MOD-sp2): 65.1 % EF(sp4-el): 70.0 % SV(MOD-sp4): 60.1 ml SV(MOD-sp2): 51.0 ml SV(sp4-el): 62.2 ml LA dimension(2D): 5.2 cm LA A4 area: 34.4 cm2 RA A4 area: 14.3 cm2 Doppler Measurements & Calculations MV E max kendall: 87.5 cm/sec Ao V2 max: 131.9 cm/sec LV V1 max: 90.5 cm/sec Ao max P.0 mmHg LV V1 max P.3 mmHg Ao V2 mean: 90.2 cm/sec LV V1 mean P.0 mmHg Ao mean P.8 mmHg LV V1 mean: 65.4 cm/sec Ao V2 VTI: 24.3 cm LV V1 VTI: 18.0 cm AV (velocity ratio): 0.74 PA V2 max: 133.6 cm/sec TR max kendall: 272.8 cm/sec PA V2 mean: 87.7 cm/sec TR max P.8 mmHg ECHO/Echo Complete Interpretation Summary Normal LV size. Left ventricular systolic function is normal. The left ventricular ejection fraction is 70 %. The left atrium is moderately enlarged. Mild (1+) tricuspid valve insufficiency. Ordering Physician: Celestino Salomon Referring Physician: Celestino Salomon Performed By: Emilia Urbano RDCS
== END | disposition home or self-care (01) ==
PROVIDERS: Referring Provider Internal Medicine Cardiovascular Disease; Visit Provider Internal Medicine Cardiovascular Disease
DX: I48.11 Longstanding persistent atrial fibrillation (principal)
CPT/HCPCS: 93306

== ENCOUNTER 2025-06-05 11:25 | Emergency (ER) | payer MEDICARE, MEDICAID, SELFPAY ==
[2025-06-05 11:26] VITALS: BP 138/79; PULSE 84; RESP 15; TEMP 36.6; O2SAT 98; BMI 29.0
[2025-06-05 11:29] VITALS: BP 126/79; PULSE 88; RESP 15; TEMP 36.6; O2SAT 96
--- NOTE | 2025-06-05 11:46 | RAD_ITS ---
PROCEDURE: WRIST MIN 3 VIEWS 06/05/2025 REASON FOR EXAM: TRAUMA, PAIN TECHNIQUE: WRIST MIN 3 VIEWS Laterality: Right wrist COMPARISON: Prior study dated September 16, 2022. FINDINGS: Bones: No fracture seen. The navicular bone is unremarkable. 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 Soft tissues: Dorsal soft tissue swelling. Other: RAD/Wrist min 3 Views IMPRESSION: Degenerative changes of the distal radial carpal joint. Soft tissue swelling. No fracture is seen. Reading Location: [id number]
--- NOTE | 2025-06-05 11:48 | EX.ED.UPPERE ---
HPI History of Present Illness Chief Complaint: Upper Extremity Injury Narrative Narrative: 70-year-old male past medical history of atrial fibrillation on Xarelto presents with right wrist pain status post fall 2 days ago. He states he was trying to go down the stairs wearing bifocals. He slipped and fell. He states he hit his head on a pool table but had no loss of consciousness. He had a hematoma that resolved that very same day. He denies any headache or neck pain. He states he is here because he has right wrist pain and swelling. He denies other injuries. Pain is worse with movement. He notes the back of his hand and wrist been swollen since then. PFSH PFS Medical History Longstanding persistent atrial fibrillation Carpal tunnel syndrome Essential (primary) hypertension Alcohol abuse Home Medications ?Medication ?Instructions ?Recorded ?Last Taken ?Type multivitamin with folic acid 400 1 tab PO DAILY 12/05/17 01/30/18 History mcg tablet lisinopril 10 1 tab PO DAILY #90 tabs 02/26/25 Unknown Rx mg-hydrochlorothiazide 12.5 mg tablet metoprolol succinate 50 mg 50 mg PO DAILY #90 tabs 02/26/25 Unknown Rx tablet,extended release 24 hr rivaroxaban 20 mg tablet 20 mg PO DAILY #90 tabs 02/26/25 Unknown Rx Allergy/AdvReac Type Severity Reaction Status Date / Time No Known Allergies Allergy Verified 06/05/25 11:29 Family History Brother Cancer Pancreatic cancer Surgical History History of cardioversion (01/30/18) History of appendectomy Social History Smoking Status: Former smoker how long ago did patient quit smokin alcohol intake: current alcohol intake frequency: 3 or more drinks per day Alcohol type: beer substance use type: does not use caffeine: Yes Type: coffee Number of servings: 3 ROS ROS ED ROS Narrative Review of systems positive for right wrist pain and swelling. Denies headache, neck pain, or other injury. Pain worse with movement. EXAM Physical Exam Narrative Exam Narrative: GCS 15. ABCs intact. No occipital hematoma. Neck soft and supple without meningismus. Full range of motion. Moves all extremities. However, focused examination of the right wrist does reveal diffuse tenderness to palpation with tenderness in the anatomical snuffbox but no pain with axial loading of the thumb. Able to oppose thumb. Good capillary refill of all fingers. Palpable radial pulse. Uninjured at the elbow and above. Const Vital Signs: 06/05/25 11:26 06/05/25 11:29 Temperature 97.9 F 97.9 F Temperature Source Temporal Oral Pulse Rate 84 88 Respiratory Rate 15 15 Blood Pressure 138/79 H 126/79 H Blood Pressure Mean 98 94 Pulse Ox 98 96 Oxygen Delivery Method Room Air Room Air MDM MDM MDM Narrative Medical decision making narrative: Differential diagnosis includes but not limited to wrist fracture versus wrist sprain versus hand contusion versus hematoma versus scaphoid fracture. X-rays were obtained of the right wrist and 3 views and interpreted by myself independently. On my independent interpretation I see degenerative changes but no evidence of an acute fracture. I reviewed the radiology report which confirms my independent interpretation. I do not feel that the patient needs a CT of the brain or any imaging of the neck. There was no loss of consciousness, it was a reported hematoma, and there are no outward signs of trauma. Additionally, his fall was over 24 hours ago. I have low clinical suspicion for any intracranial hemorrhage or acute pathology. He is not having headaches. He is here mainly for his right wrist. Patient will be placed in a cock up wrist splint and told to continue ice and elevation of his right wrist and follow-up with his primary care provider. He will take [id number] analgesics which should be sufficient for pain control. Patient is agreeable to the plan. Return instructions to the emergency department were reviewed. Disposition is discharged home in stable condition. History & Record Review Discussion w/independent historian: Patient Discharge Plan Triage Chief Complaint: Upper Extremity Injury ED Provider: Kamaljit Avila Dx/Rx/DC Orders Clinical Impression: Right wrist sprain, Swelling of right hand Instructions: ED Contusion, Upper Extremity, ED Wrist Sprain Prescriptions: No Action multivitamin with folic acid 1 TABLET tablet 1 tab PO DAILY lisinopril-hydrochlorothiazide 10-12.5 mg tablet 1 tab PO DAILY Qty: 90 3RF rivaroxaban 20 mg tablet 20 mg PO DAILY Qty: 90 3RF metoprolol succinate 50 mg tablet extended release 24 hr 50 mg PO DAILY Qty: 90 3RF Primary Care Provider: Care Physician,No Primary Referrals: Care Physician,No Primary [Primary Care Provider] - Activity Restrictions/Additional Instructions: Wear wrist splint for the next week for support. You can exercise your wrist a few times a day. [id number] medications as needed for pain. Continue ice and elevation of your right wrist a few times a day over the next week. Follow-up with your primary care provider. Return with new or worsening symptoms. Print Language: Tunisian Disposition Disposition: Home, Self Care
== END 2025-06-05 13:27 | disposition home or self-care (01) ==
PROVIDERS: Emergency Provider Emergency Medicine; Visit Provider Emergency Medicine
DX: S63.91XA Sprain of unspecified part of right wrist and hand, initial encounter (principal); I48.11 Longstanding persistent atrial fibrillation; I10 Essential (primary) hypertension; Z79.01 Long term (current) use of anticoagulants; W10.9XXA Fall (on) (from) unspecified stairs and steps, initial encounter; Z87.891 Personal history of nicotine dependence; Z79.899 Other long term (current) drug therapy; Z90.49 Acquired absence of other specified parts of digestive tract; M79.89 Other specified soft tissue disorders
CPT/HCPCS: 73110; 99283